=== PATIENT | female | born 1990 | race Caucasian/White ===

== ENCOUNTER 2024-05-21 11:06 | Emergency (ER) | payer SELFPAY ==
--- OUTSIDE RECORDS SUMMARY | 2024-05-21 11:11 | XMS REPORT | Continuity of Care Document ---
Author Name Unknown Address [address] [facility] [address] [place] [address] [facility] thconnect Address [address] [facility] [address] [place] [address] Care Team Providers Care Criminal Intelligence Analyst Name Role Phone Sabra Gisele CUMMINGS Primary Care Physician DEBORAH LOVE Attending Clinician Unavailable Bessie Leblanc Attending Clinician DR ROD Burgess Attending Clinician DEBORAH Honeycutt M.D. Attending Clinician Unavail GLENROY Trinidad P.A. Attending Clinician DR SAMI Cavazos Attending Clinician DR MARY Liu Attending Clinician VISHNU Vidal M.D. Attending Clinician DR VIRI Shannon BA Attending Clinician Unavailable DR DOMO PULLIAM Attending Clinician DR SUAD Winslow Attending Clinician Unavailable DR REINA AGEE Attending Clinician Unavailjian patel Physician, No Primary or Family Admitting Clinic DR ROD Grossman Admitting Clinician DR SAMI Beltran Admitting Clinician DR MARY Liu Admitting Clinician Unavailable DR VIRI MIRANDA Admitting Clinician Unavailable DR DOMO PULLIAM Admitting Clinician U dhiraj CANNON, DR BORJAS Admitting Clinician Unavailable CYNDIE, DR REINA Marx Admitting Clinician Unavailabl e Payers Payer Name Policy Type Policy Number Effective Date Expirati on Date Source PSYCHIATRIC MEDICAID STAR [id number] 2019 00:00:00 Problems Condition Name Condition Details Condition Category Status Onset Date Resolution Date Last Treatment Date Treating Clinician Comments Source History of Known health problems: none History of Known health problems: none Problem Resolve d [facility] Screening for cervical cancer Screening for cervical cancer Problem Active [facility] Need for HPV vaccinatio n Need for HPV vaccinatio n Problem Active [facility] Contracept ion management Contracept ion management Problem Active [facility] Acute cystitis with hematuria Acute cystitis with hematuria Problem Active [facility] Screen for STD (sexually transmitte d disease) Screen for STD (sexually transmitte d disease) Problem Active [facility] Influenza vaccinatio n declined Influenza vaccinatio n declined Problem Active [facility] Nexplanon insertion Nexplanon insertion Problem Active [facility] Encounter for counseling regarding contracept ion Encounter for counseling regarding contracept ion Problem Active [facility] Encounter for gynecologi callie examinatio n with Papanicola ou smear of cervix Encounter for gynecologi callie examinatio n with Papanicola ou smear of cervix Problem Active [facility] UTI (urinary tract infection) UTI (urinary tract infection) Problem Active [facility] Chlamydia Chlamydia Problem Active [facility] Dysuria Dysuria Problem Active [facility] BV (bacterial vaginosis) BV (bacterial vaginosis) Problem Active [facility] Increased urinary frequency Increased urinary frequency Problem Active [facility] Allergies, Adverse Reactions, Alerts Allergy Name Allergy Type Status Severity Reaction(s) Onset Date Inactive Date Treating Clinician Comments Source Sulfa Antibiot ics - CLASS Propensi ty to adverse reaction to drug Active 04-06 00:00: 00 Ramana Farnsworth Sulfa (Sulfona mide Antibiot ics) DA Active [facility] 01-27 00:00: 00 [facility] Sulfa (Sulfona mides) DA Active Unknown 09-29 00:00: 00 [facility] No Known Food Allergie s DA Active U 04-22 00:00: 00 [facility] No Known Other Allergie s DA Active U 04-22 00:00: 00 [facility] No Known Contrast Allergie s DA Active U 04-22 00:00: 00 [facility] No Known Drug Allergie s DA Active U 04-22 00:00: 00 [facility] sulfa Allergy to drug (finding ) Active [facility] Family History Family Member Diagnosis Comments Start Date Stop Date Sourc e Mother Family history of diabetes mellitus [facility] Unknown Family Member Family history of malignant neoplasm of female breast Maternal Relatives [facility] Social History Smoking Status Start Date Stop Date Source Occasional tobacco smoker (finding) [facility] Medications Ordered Medication Name Filled Medication Name Start Date Stop Date Current Medication? Ordering Clinician Indication Dosage Frequency Signature (SIG) Comments Components Source penicillin V potassium 500 mg tablet 01-27 00:00: 00 Yes 1mg Ramana Farnsworth TAKE 1 TABLET BY MOUTH EVERY 6 HOURS NEEDED FOR PAIN 04-08 00:00: 00 Yes Ramana Farnsworth AMOX/K CLAV [id number] [id number] 7-13 00:00: 00 Yes Ramana Farnsworth AMOX/K CLAV [id number] [id number] 4-21 00:00: 00 Yes Ramana Farnsworth TAKE 1 TABLET BY MOUTH EVERY DAY 01-15 00:00: 00 Yes Ramana Farnsworth CETIRIZINE 01-15 00:00: 00 Yes Ramana Farnsworth metroNIDAZO LE 500 MG Oral Tablet metroNIDAZO LE 500 MG Oral Tablet 15 00:00: 00 Yes DEBORAH Amezcua.Romaine TAKE ONE TABLET TWICE DAILY FOR 7 DAYS. DO NOT DRINK ALCOHOL [facility] Nitrofurant oin Monohyd Macro 100 MG Oral Capsule Nitrofurant oin Monohyd Macro 100 MG Oral Capsule 2019-09 00:00: 00 Yes DEBORAHTIFFANY MUELLERKATE M.D. 1 capsule twice a day for 7 days [facility] Vital Signs Vital Name Observation Time Observation Value Comments S ource Height 2021-02-06 17:22:00 165.1 CM Weight 2021-02-06 17:22:00 47.17 KG Height 2020-02-15 17:02:00 162.56 CM Weight 2020-02-15 17:02:00 52.16 KG Height 2019-11-27 19:04:00 162.56 CM Weight 2019-11-27 19:04:00 53.52 KG Height 2019-10-31 13:07:00 162.56 CM Weight 2019-10-31 13:07:00 52.16 KG BP Systolic 2024-03-08 15:51:00 108 mm[Hg] Ramana F Javad BP Diastolic 2024-03-08 15:51:00 77 mm[Hg] Ramana F Javad Weight Measured 2024-03-08 15:51:00 118.00 pounds Ramana F Javad Height Measured 2024-03-08 15:51:00 64.00 inches Ramana F Javad Body Temperature 2024-03-08 15:51:00 98.20 degrees Ramana F Javad Heart Rate 2024-03-08 15:51:00 80.00 /min Ramana F Javad Respiratory Rate 2024-03-08 15:51:00 18.00 /min Ramana F Javad Height Measured 2024-01-25 16:15:00 64.00 inches Ramana F Javad Body Temperature 2024-01-25 16:15:00 98.20 degrees Ramana F Javad Heart Rate 2024-01-25 16:15:00 83.00 /min Armana F Javad Respiratory Rate 2024-01-25 16:15:00 17.00 /min Ramana F Javad BP Systolic 2024-01-25 16:15:00 117 mm[Hg] Ramana F Javad BP Diastolic 2024-01-25 16:15:00 80 mm[Hg] Ramana F Javad Weight Measured 2024-01-25 16:15:00 117.00 pounds Ramana F Javad BP Systolic 2023-04-13 17:34:00 111 mm[Hg] Ramana F Javad BP Diastolic 2023-04-13 17:34:00 74 mm[Hg] Ramana F Javad Weight Measured 2023-04-13 17:34:00 116.00 pounds Ramana F Javad Height Measured 2023-04-13 17:34:00 64.00 inches Ramana F Javad Body Temperature 2023-04-13 17:34:00 98.20 degrees Ramana F Javad Heart Rate 2023-04-13 17:34:00 68.00 /min Ramana Farnsworth Respiratory Rate 2023-04-13 17:34:00 17.00 /min Ramana Farnsworth BP Systolic 2023-04-06 10:07:00 108 mm[Hg] Ramana Farnsworth BP Diastolic 2023-04-06 10:07:00 71 mm[Hg] Ramana Farnsworth Weight Measured 2023-04-06 10:07:00 114.40 pounds Ramana Farnsworth Height Measured 2023-04-06 10:07:00 64.00 inches Ramana Farnsworth Body Temperature 2023-04-06 10:07:00 97.70 degrees Ramana Farnsworth Heart Rate 2023-04-06 10:07:00 63.00 /min Ramana Farnsworth Respiratory Rate 2023-04-06 10:07:00 Ramana Farnsworth Systolic blood pressure 2020-12-04 08:53:00 108 mm[Hg] Location: [facility]; Position: Sitting [facility] Diastolic blood pressure 2020-12-04 08:53:00 72 mm[Hg] Location: [facility]; Position: Sitting [facility] Body height 2020-12-04 08:53:00 65 [in_us] [facility] Weight 2020-12-04 08:53:00 114 [lb_av] [facility] Body mass index (BMI) [Ratio] 2020-12-04 08:53:00 18.97 kg/m2 [facility] Body temperature 2020-12-04 08:53:00 97.8 [degF] [facility] Heart Rate 2020-12-04 08:53:00 81 /min [facility] Systolic blood pressure 2020-09-04 08:22:00 92 mm[Hg] Location: [facility]; Position: Sitting [facility] Diastolic blood pressure 2020-09-04 08:22:00 64 mm[Hg] Location: [facility]; Position: Sitting [facility] Body height 2020-09-04 08:22:00 65 [in_us] [facility] Weight 2020-09-04 08:22:00 117 [lb_av] [facility] Body mass index (BMI) [Ratio] 2020-09-04 08:22:00 19.47 kg/m2 [facility] Body temperature 2020-09-04 08:22:00 96.7 [degF] [facility] Heart Rate 2020-09-04 08:22:00 77 /min [facility] Systolic blood pressure 2020-08-07 08:54:00 98 mm[Hg] Location: [facility]; Position: Sitting [facility] Diastolic blood pressure 2020-08-07 08:54:00 62 mm[Hg] Location: [facility]; Position: Sitting [facility] Body height 2020-08-07 08:54:00 65 [in_us] [facility] Body mass index (BMI) [Ratio] 2020-08-07 08:54:00 19.64 kg/m2 [facility] Weight 2020-08-07 08:54:00 118 [lb_av] [facility] Body temperature 2020-08-07 08:54:00 98.5 [degF] [facility] Heart Rate 2020-08-07 08:54:00 71 /min [facility] Systolic blood pressure 2020-08-07 08:17:00 101 mm[Hg] Location: [facility]; Position: Sitting [facility] Diastolic blood pressure 2020-08-07 08:17:00 72 mm[Hg] Location: [facility]; Position: Sitting [facility] Body height 2020-08-07 08:17:00 65 [in_us] [facility] Body mass index (BMI) [Ratio] 2020-08-07 08:17:00 18.31 kg/m2 [facility] Weight 2020-08-07 08:17:00 110 [lb_av] [facility] Body temperature 2020-08-07 08:17:00 96.6 [degF] [facility] Heart Rate 2020-08-07 08:17:00 101 /min [facility] Systolic blood pressure 2020-07-18 09:37:00 99 mm[Hg] [facility] Diastolic blood pressure 2020-07-18 09:37:00 69 mm[Hg] [facility] Body height 2020-07-18 09:37:00 65 [in_us] [facility] Weight 2020-07-18 09:37:00 108.4 [lb_av] [facility] Body mass index (BMI) [Ratio] 2020-07-18 09:37:00 18.04 kg/m2 [facility] Body temperature 2020-07-18 09:37:00 97.6 [degF] [facility] Heart Rate 2020-07-18 09:37:00 91 /min [facility] Respiratory rate 2020-07-18 09:37:00 19 /min [facility] O2 SAT 2020-07-18 09:37:00 100 % [facility] Systolic blood pressure 2019-11-20 09:47:00 113 mm[Hg] Location: [facility]; Position: Sitting [facility] Diastolic blood pressure 2019-11-20 09:47:00 73 mm[Hg] Location: [facility]; Position: Sitting [facility] Body height 2019-11-20 09:47:00 65 [in_us] [facility] Weight 2019-11-20 09:47:00 119 [lb_av] [facility] Body mass index (BMI) [Ratio] 2019-11-20 09:47:00 19.8 kg/m2 [facility] Body temperature 2019-11-20 09:47:00 97.4 [degF] [facility] Heart Rate 2019-11-20 09:47:00 70 /min [facility] Respiratory rate 2019-11-20 09:47:00 19 /min [facility] O2 SAT 2019-11-20 09:47:00 100 % [facility] Systolic blood pressure 2019-11-13 10:29:00 105 mm[Hg] Location: [facility]; Position: Sitting [facility] Diastolic blood pressure 2019-11-13 10:29:00 70 mm[Hg] Location: [facility]; Position: Sitting [facility] Body height 2019-11-13 10:29:00 65 [in_us] [facility] Weight 2019-11-13 10:29:00 117.6 [lb_av] [facility] Body mass index (BMI) [Ratio] 2019-11-13 10:29:00 19.57 kg/m2 [facility] Body temperature 2019-11-13 10:29:00 97.5 [degF] [facility] Heart Rate 2019-11-13 10:29:00 69 /min [facility] Respiratory rate 2019-11-13 10:29:00 19 /min [facility] O2 SAT 2019-11-13 10:29:00 100 % [facility] Procedures Procedure Date / Time Performed Performing Clinicia n Source [QL] CULTURE, URINE, ROUTINE 2020-12-04 00:00:00 [facility] . [facility] - GC/Chlamydia 2020-10-08 00:00:00 [facility] . [facility] - Affirm VPIII (BV Panel) 2020-10-08 00:00:00 [facility] [QL] CBC (INCLUDES DIFF/PLT) 2020-09-04 00:00:00 [facility] [QL] CMP W/EGFR 2020-09-04 00:00:00 [facility] [QL] HEMOGLOBIN A1c 2020-09-04 00:00:00 [facility] [QL] LIPID PANEL 2020-09-04 00:00:00 [facility] [QL] T4, FREE 2020-09-04 00:00:00 [facility] [QL] TSH, 3RD GENERATION 2020-09-04 00:00:00 [facility] . [facility] - PAP 2020-09-04 00:00:00 [facility] [QL] CULTURE, URINE, ROUTINE 2020-07-18 00:00:00 [facility] [Q] CHLAMYDIA/N. GONORRHOEAE RNA, TMA 2020-07-18 00:00:00 [facility] [Q] HIV AB, HIV 1/2, EIA, WITH REFLEXES 2020-07-18 00:00:00 [facility] [Q] HEPATITIS B SURFACE ANTIGEN W/REFL CONFIRM 2020-07-18 00:00:00 [facility] [Q] RPR (MONITOR) W/REFL TITER 2020-07-18 00:00:00 [facility] [QL] HEPATITIS C ANTIBODY 2020-07-18 00:00:00 [facility] [QH] HEPATITIS B SURFACE ANTIGEN W/REFL CONFIRM 2019-11-13 00:00:00 [facility] [QH] HIV AB, HIV 1/2, EIA, WITH REFLEXES 2019-11-13 00:00:00 [facility] [QLH] HEPATITIS C ANTIBODY 2019-11-13 00:00:00 [facility] [QLH] RPR 2019-11-13 00:00:00 [facility] - PAP 2019-11-13 00:00:00 [facility] - PAP w/reflex HPV if ASC-US or above 2019-11-13 00:00:00 [facility] . [facility] - HPV 16/18/45 Genotyping 2019-11-13 00:00:00 [facility] . [facility] - Affirm VPIII (BV Panel) 2019-11-13 00:00:00 [facility] . [facility] - GC/Chlamydia 2019-11-13 00:00:00 [facility] History of Dilation and curettage [facility] Encounters Start Date/Time End Date/Time Encounter Type Admission Type Attending Clinicians Care Facility Care Department Encounter ID Source 2021-02-01 03:33:06 Outpatient DEBORAH LOVE [facility] [id number] [facility] 2024-03-08 15:43:58 2024-03-08 15:43:58 Outpatient SFA [id number] [id number] Ramana Farnsworth 2024-03-08 00:00:00 2024-03-08 00:00:00 Outpatient Visit SFA [id number] Ramana Farnsworth 2024-02-10 15:34:48 2024-02-10 15:34:48 Outpatient SFA [id number] [id number] Ramana Farnsworth 2024-01-25 15:53:17 2024-01-25 15:53:17 Outpatient SFA [id number] [id number] Ramana Farnsworth 2024-01-25 00:00:00 2024-01-25 00:00:00 Outpatient Visit SFA [id number] Ramana Farnsworth 2023-04-13 17:18:39 2023-04-13 17:18:39 Outpatient SFA [id number] [id number] Ramana Farnsworth 2023-04-06 10:02:12 2023-04-06 10:02:12 Outpatient SFA [id number] [id number] Ramana Farnsworth 2022-04-13 00:00:00 2022-04-13 00:00:00 Outpatient [facility] [id number] [id number] [facility] 2022-01-27 13:17:00 2022-01-27 15:28:00 Emergency EM Deana, Bessie HCAKW [facility] [id number] [facility] 2022-01-27 13:17:00 2022-01-27 15:28:00 Emergency EM Deana, Bessie HCAKW [facility] [id number] [facility] 2021-02-06 17:17:00 2021-02-06 18:03:00 Emergency E ROD RODRIGUEZ [facility] [id number] [facility] 2020-12-04 08:45:00 2020-12-04 08:45:00 Appointmen t; DEBORAH LOVE M.D. DURRANI, SADIA, M.D. [facility] [place] [id number] [facility] 2020-10-08 11:45:00 2020-10-08 11:45:00 Appointmen t; DEBORAH LOVE M.D. DURRANI, SADIA, M.D. [facility] [place] [id number] [facility] 2020-09-04 08:30:00 2020-09-04 08:30:00 Appointmen t; DEBORAH LOVE M.D. DURRANI, SADIA, M.D. [facility] [place] [id number] [facility] 2020-08-07 08:30:00 2020-08-07 08:30:00 Appointmen t; DEBORAH LOVE M.D. DURRANI, SADIA, M.D. [facility] [id number] [facility] 2020-07-18 09:45:00 2020-07-18 09:45:00 Appointmen t; GLENROY HOLGUIN, PGLENROY RUIZ, P.Honorio [facility] [id number] [facility] 2020-02-15 16:34:00 2020-02-15 19:30:00 Emergency E SAMI HANLEY [facility] [id number] [facility] 2019-11-27 19:04:00 2019-11-27 21:41:00 Emergency E MARY AGEE [facility] [id number] [facility] 2019-11-20 09:30:00 2019-11-20 09:30:00 Appointmen t; VISHNU AGGARWAL M.D. DURGAM, ABHILASH, M.D. [facility] [id number] [facility] 2019-11-13 10:00:00 2019-11-13 10:00:00 Appointmen t; VISHNU AGGARWAL M.D. DURGAM, ABHILASH, M.D. [facility] [id number] [facility] 2019-10-31 13:07:00 2019-10-31 14:33:00 Emergency E SAMI HANLEY [facility] [id number] [facility] 2018-12-12 12:27:00 2018-12-12 14:15:00 Emergency E VIRI MIRANDA [facility] [id number] [facility] 2018-05-16 20:34:00 2018-05-16 23:05:00 Emergency E DOMO PULLIAM [facility] [id number] [facility] 2018-05-11 19:04:00 2018-05-11 22:11:00 Emergency E SUAD CANNON [facility] [id number] [facility] 2017-11-11 11:49:00 2017-11-11 14:01:00 Emergency E REINA AGEE [facility] [id number] [facility] Results Test Description Test Time Test Comments Results Result Co mments Source CULTURE, URINE 2024-01-27 11:14:04 SPECIMEN NUMBER: [id number] CULTURE, URINE SPECIMEN NUMBER: [id number] SPECIMEN COMMENT: URINE SOURCE: URINE REPORT STATUS: FINAL ISOLATE NUMBER 1: ORGANISM: 01/27/2024 <10,000 CFU/ML STREPTOCOCCUS AGALACTIAE (GROUP B) ADDITIONAL OBSERVATIONS: PENICILLIN AND AMPICILLIN ARE DRUGS OF CHOICE FOR TREATMENT OF B-HEMOLYTIC STREPTOCOCCAL INFECTIONS. SUSCEPTIBILITY TESTING OF PENICILLIN AND OTHER B-LACTAMS APPROVED BY THE US FOOD AND DRUG ADMINISTRATION FOR TREATMENT OF B-HEMOLYTIC STREPTOCOCCAL INFECTIONS NEED NOT BE PERFORMED ROUTINELY. ADDITIONAL OBSERVATIONS: 01/27/2024 <10,000 CFU/ML UROGENITAL FRANK PRESENT NO COMMON PATHOGENS Ramana Smith AustinCT/NG, NAAT, [id number] 16:53:42* Test Item Value Reference Range Interpretation Comme nts CHLAMYDIA, NAAT, URINE (test code = 00026) NEGATIVE NEGATIVE Testing is perfo rmed with qianchengwuyouAS 6800/8800 systems usingreal-time polymerase chain reaction (PCR) method. A negative result does not exclude low level infection, specimensampling error, or collection error. GONORRHEA, NAAT, URINE (test code = 04226) NEGATIVE NEGATIVE Testing is perfo rmed with Joe ASCENCION 6800/8800 systems usingreal-time polymerase chain reaction (PCR) method. A negative result does not exclude low level infection, specimensampling error, or collection error. UNLESS OTHERWISE INDICATED, ALL TESTING PERFORMED AT [facility] [address] [place] [address] CRM SPECIALIST: ANGELO KELSEY M.D. CLIA NUMBER [id number] [place]. [id number] CT/NG, NAAT, [id number] 00:00:00* Test Item Value Reference Range Interpretation Comme nts CHLAMYDIA, NAAT, URINE (test code = 70312) NEGATIVE GONORRHEA, NAAT, URINE (test code = 46641) NEGATIVE Ramana F Javad[] CULTURE, URINE, [id number] 10:26:00* Test Item Value Reference Range Interpretation Comme nts CULTURE (test code = CULTURE) See Comment A CULTURE, URINE, ROUTINE Micro Number: [id number] Test Status: Final Specimen Source: URINE, CLEAN CATCH Specimen Quality: Adequate Result: Greater than 100,000 CFU/mL of Escherichia coli E.coli INT SONJA AMOX/CLAVULANATE I 16 AMPICILLIN R >=32 AMP/SULBACTAM I 16 CEFAZOLIN NR <=4 2 CEFEPIME S <=1 CEFTRIAXONE S <=1 CIPROFLOXACIN S <=0.25 GENTAMICIN R >=16 IMIPENEM S <=0.25 LEVOFLOXACIN S <=0.12 NITROFURANTOIN S <=16 PIP/TAZOBACTAM S <=4 TOBRAMYCIN I 8 TRIMETHOPRIM/SULFA R >=320S=Susceptible I=Intermediate R=Resistant * = Not TestedNR = Not Reported NN = See Therapy CommentsTHERAPY COMMENTS Note 1: For infections other than uncomplicated UTI caused by E. coli, K. pneumoniae or P. mirabilis: Cefazolin is resistant if SONJA > or = 8 mcg/mL. (Distinguishing susceptible versus intermediate for isolates with SONJA < or = 4 mcg/mL requires additional testing.) Note 2: For uncomplicated UTI caused by E. coli, K. pneumoniae or P. mirabilis: Cefazolin is susceptible if SONJA <32 mcg/mL and predicts susceptible to the oral agents cefaclor, cefdinir, cefpodoxime, cefprozil, cefuroxime, cephalexin and loracarbef. [facility]. [facility] - Affirm VPIII (BV Panel)2020-10-09 15:07:00* Test Item Value Reference Range Interpretation Comme nts Case (test code = Case) Click ImageLink button for report. A [facility][QL] LIPID [id number] 09:25:00* Test Item Value Reference Range Interpretation Comme nts CHOLESTEROL, TOTAL; Normal (test code = 3-3) 130 mg/dl <200 N HDL CHOLESTEROL; Normal (test code = 5-9) 51 mg/dl > OR = 50 N TRIGLYCERIDES; Normal (test code = 2571-8) 71 mg/dl <150 N LDL-CHOLESTEROL; Normal (test code = 63352-3) 64 {MG/DL CALLIE} N Reference range: <100 Desirable range <100 mg/dL for primary prevention; <70 mg/dL for patients with CHD or diabetic patients with > or = 2 CHD risk factors. LDL-C is now calculated using the Malik-Ольга calculation, which is a validated novel method providing better accuracy than the Friedewald equation in the estimation of LDL-C. Malik SS et al. ALEXANDRA. 2013;310(19): 2983-5925 (http://education.Capstory.com/f aq/IBM752) CHOL/HDLC RATIO (test code = CHOL/HDLC RATIO) 2.5 {CALC} <5.0 N NON HDL CHOLESTEROL (test code = NON HDL CHOLESTEROL) 79 {MG/DL CALILE} <130 N For patients wit h diabetes plus 1 major ASCVD risk factor, treating to a non-HDL-C goal of <100 mg/dL (LDL-C of <70 mg/dL) is considered a therapeutic option. [facility][QL] CMP [id number] 09:25:00* Test Item Value Reference Range Interpretation Comme nts GLUCOSE; Normal (test code = 1547-9) 86 mg/dl 65-99 N Fasting ref erence interval UREA NITROGEN (BUN) (test code = UREA NITROGEN (BUN)) 7 mg/dl 7-25 N CREATININE (test code = CREATININE) 0.78 mg/dl 0.50-1.10 N eGFR NON-AFR. [place] (test code = eGFR NON-AFR. [place]) 102 {ML/MIN/1.7} > OR = 60 N eGFR (test code = eGFR ) 118 {ML/MIN/1.7} > OR = 60 N BUN/CREATININE RATIO (test code = BUN/CREATININE RATIO) NOT APPLICABLE 6-22 SODIUM (test code = SODIUM) 139 mmol/L 135-146 N POTASSIUM (test code = POTASSIUM) 4.0 mmol/L 3.5-5.3 N CHLORIDE (test code = CHLORIDE) 103 mmol/L 98-110 N CARBON DIOXIDE (test code = CARBON DIOXIDE) 30 mmol/L 20-32 N CALCIUM (test code = CALCIUM) 9.3 mg/dl 8.6-10.2 N PROTEIN, TOTAL (test code = PROTEIN, TOTAL) 6.6 g/dl 6.1-8.1 N ALBUMIN (test code = ALBUMIN) 4.2 g/dl 3.6-5.1 N GLOBULIN (test code = GLOBULIN) 2.4 {G/DL CALC} 1.9-3.7 N ALBUMIN/GLOBULIN RATIO (test code = ALBUMIN/GLOBULIN RATIO) 1.8 {CALC} 1.0-2.5 N BILIRUBIN, TOTAL; Normal (test code = 08445-5) 0.5 mg/dl 0.2-1.2 N ALKALINE PHOSPHATASE (test code = ALKALINE PHOSPHATASE) 57 u/l 31-125 N AST; Normal (test code = 1916-6) 11 u/l 10-30 N ALT; Normal (test code = 1742-6) 9 u/l 6-29 N [facility][QL] CBC (INCLUDES DIFF/PLT)2020-09-04 09:25:00* Test Item Value Reference Range Interpretation Comme nts WHITE BLOOD CELL COUNT (test code = WHITE BLOOD CELL COUNT) 9.2 {Thousand/u} 3.8-10.8 N RED BLOOD CELL COUNT (test code = RED BLOOD CELL COUNT) 4.39 {Million/uL} 3.80-5.10 N HEMOGLOBIN; Normal (test code = 21350-7) 12.8 g/dl 11.7-15.5 N HEMATOCRIT; Normal (test code = 4544-3) 37.9 % 35.0-45.0 N MCV; Normal (test code = 787-2) 86.3 fL 80.0-100.0 N MCHC; Normal (test code = 64948-0) 33.8 g/dl 32.0-36.0 N RDW; Normal (test code = 788-0) 11.7 % 11.0-15.0 N PLATELET COUNT; Normal (test code = 777-3) 221 {Thousand/u} 140-400 N MPV; Normal (test code = 90891-5) 11.0 fL 7.5-12.5 N ABSOLUTE NEUTROPHILS (test code = ABSOLUTE NEUTROPHILS) 5980 {cells/uL} 0464-2085 N ABSOLUTE LYMPHOCYTES (test code = ABSOLUTE LYMPHOCYTES) 2309 {cells/uL} 850-3900 N ABSOLUTE MONOCYTES (test code = ABSOLUTE MONOCYTES) 552 {cells/uL} 200-950 N ABSOLUTE EOSINOPHILS (test code = ABSOLUTE EOSINOPHILS) 322 {cells/uL} 15-500 N ABSOLUTE BASOPHILS (test code = ABSOLUTE BASOPHILS) 37 {cells/uL} 0-200 N NEUTROPHILS (test code = NEUTROPHILS) 65 % N LYMPHOCYTES (test code = LYMPHOCYTES) 25.1 % N MONOCYTES; Normal (test code = 72250-7) 6.0 % N EOSINOPHILS; Normal (test code = 65892-8) 3.5 % N BASOPHILS; Normal (test code = 36639-0) 0.4 % N [facility][QL] T4, [id number] 09:25:00* Test Item Value Reference Range Interpretation Comme nts T4, FREE (test code = T4, FREE) 1.0 ng/dl 0.8-1.8 N [facility][QL] TSH, 3RD [id number] 09:25:00* Test Item Value Reference Range Interpretation Comme nts TSH; Normal (test code = 27928-8) 2.15 {MIU/L} N Reference Range > or = 20 Years 0.40-4.50 Ranges First trimester 0.26-2.66 Second trimester 0.55-2.73 Third trimester 0.43-2.91 [facility][QL] HEMOGLOBIN [id number] 09:25:00* Test Item Value Reference Range Interpretation Comme nts HEMOGLOBIN A1c; Normal (test code = 4548-4) 4.8 {% of total} <5.7 N For the purpose of screening for the presence ofdiabetes: <5.7% Consistent with the absence of diabetes5.7-6.4% Consistent with increased risk for diabetes (prediabetes)> or =6.5% Consistent with diabetes This assay result is consistent with a decreased riskof diabetes. Currently, no consensus exists regarding use ofhemoglobin A1c for diagnosis of diabetes in children. According to [place] [employer] (ADA)guidelines, hemoglobin A1c <7.0% represents optimalcontrol in non- diabetic patients. Differentmetrics may apply to specific patient populations. Standards of Medical Care in Diabetes(ADA). [facility]. [facility] - [id number] 00:00:00* Test Item Value Reference Range Interpretation Comme nts Case (test code = Case) Click ImageLink button for report. A [facility][O] Urine Test (in office)2020-08-07 08:21:00* Test Item Value Reference Range Interpretation Comme [facility] Test, Urine; Eladia l (test code = 2106-3) neg N [facility][O] Urine Dipstick (In Office)2020-07-18 11:17:00* Test Item Value Reference Range Interpretation Comme nts Glucose (test code = Glucose) neg N LEUKOCYTES (test code = LEUKOCYTES) trace A NITRITE; Normal (test code = 95360-1) neg N UROBILINOGEN; Normal (test c ode = 61498-1) 0.2 N PROTEIN; Normal (test code = 95894-8) 30 N pH (test code = pH) 6.0 N URINE BLOOD; Abnormal (test code = 63047-0) large A SPECIFIC GRAVITY; Normal (te st code = 2965-2) 1.020 N KETONES; Normal (test code = 87200-5) neg N BILIRUBIN; Abnormal (test co de = 19278-5) small A [facility][Q] HIV-1/2 Antigen and Antibodies, Fourth Generation, with [id number] 10:30:00* Test Item Value Reference Range Interpretation Comme nts HIV AG/AB, 4TH GEN; Normal (test code = 99387-1) NON-REACTIVE NON-REACTIVE N HIV-1 antigen an d HIV-1/HIV-2 antibodies were notdetected. There is no laboratory evidence of HIVinfection. PLEASE NOTE: This information has been disclosed toyou from records whose confidentiality may beprotected by state law. If your state requires suchprotection, then the state law prohibits you frommaking any further disclosure of the informationwithout the specific written consent of the personto whom it pertains, or as otherwise permitted by law.A general authorization for the release of medical orother information is NOT sufficient for this purpose. For additional information please refer [email or web address]/faq/GDZ498(Thi s link is being provided for informational/educational purposes only.) The performance of this assay has not been clinicallyvalidated in patients less than 2 years old. [facility][Q] HEPATITIS B SURFACE ANTIGEN W/REFL [id number] 10:30:00* Test Item Value Reference Range Interpretation Comme nts HEPATITIS B SURFACE ANTIGEN; Normal (test code = 5195-3) NON-REACTIVE NON-REACTIVE N [facility][QL] HEPATITIS C [id number] 10:30:00* Test Item Value Reference Range Interpretation Comme nts HEPATITIS C ANTIBODY; Normal (test code = 63095-6) NON-REACTIVE NON-REACTIVE N SIGNAL TO CUT-OFF (test code = SIGNAL TO CUT-OFF) 0.02 <1.00 N HCV antibody was non-reactive. There is no laboratory evidence of HCV infection. In most cases, no further action is required. However,if recent HCV exposure is suspected, a test for HCV RNA(test code 87509) is suggested. For additional information please refer tohttp://educationTranslimit/fa q/XJE53b4(This link is being provided for informational/educati onal purposes only.) [facility][Q] CHLAMYDIA/N. GONORRHOEAE RNA, [id number] 10:30:00* Test Item Value Reference Range Interpretation Comme nts CHLAMYDIA TRACHOMATIS RNA, TMA, UROGENITAL; Normal (test code = 11929-9) NOT DETECTED NOT DETECTED N NEISSERIA GONORRHOEAE RNA, TMA, UROGENITAL; Normal (test code = 84912-7) NOT DETECTED NOT DETECTED N See Comment (test code = See Comment) See Comment The analytic al performance characteristics of thisassay, when used to test [facility](TM) specimens have beendetermined by [facility]. The modifications havenot been cleared or approved by the FDA. This assay hasbeen validated pursuant to the CLIA regulations and isused for clinical purposes. For additional information, please refer tohttps://education.[employer]/faq /MMK724(This link is being provided for information/educationa l purposes only.) [facility][QL] [id number] 10:30:00* Test Item Value Reference Range Interpretation Comme nts RPR (MONITOR) W/REFL TITER (REFL) (test code = RPR (MONITOR) W/REFL TITER (REFL)) NON-REACTIVE NON-REACTIVE N [facility][QL] CULTURE, URINE, [id number] 10:30:00* Test Item Value Reference Range Interpretation Comme nts CULTURE (test code = CULTURE) See Comment A CULTURE, URINE, ROUTINE Micro Number: [id number] Test Status: Final Specimen Source: URINE Specimen Quality: Adequate Result: Greater than 100,000 CFU/mL of Escherichia coli E.coli INT SONJA AMOX/CLAVULANATE S <=2 AMPICILLIN S <=2 AMP/SULBACTAM S <=2 CEFAZOLIN NR <=4 2 CEFEPIME S <=1 CEFTRIAXONE S <=1 CIPROFLOXACIN R >=4 GENTAMICIN S <=1 IMIPENEM S <=0.25 LEVOFLOXACIN R >=8 NITROFURANTOIN S <=16 PIP/TAZOBACTAM S <=4 TOBRAMYCIN S <=1 TRIMETHOPRIM/SULFA S <=20S=Susceptible I=Intermediate R=Resistant * = Not TestedNR = Not Reported NN = See Therapy CommentsTHERAPY COMMENTS Note 1: For infections other than uncomplicated UTI caused by E. coli, K. pneumoniae or P. mirabilis: Cefazolin is resistant if SONJA > or = 8 mcg/mL. (Distinguishing susceptible versus intermediate for isolates with SONJA < or = 4 mcg/mL requires additional testing.) Note 2: For uncomplicated UTI caused by E. coli, K. pneumoniae or P. mirabilis: Cefazolin is susceptible if SONJA <32 mcg/mL and predicts susceptible to the oral agents cefaclor, cefdinir, cefpodoxime, cefprozil, cefuroxime, cephalexin and loracarbef. [facility]UR[facility] [id number] 09:44:00* Test Item Value Reference Range Interpretation Comme nts Culture Observations (test code = COB1) THREE OR MORE SPECIES OF BACTERIA ISOLATED. PROBABLE CONTAMINATION. Culture Observations (test code = COB17) IDENTIFICATION AND SUSCEPTIBILITY NOT INDICATED. RECOLLECTION RECOMMENDED COMPREHENSIVE METABOLIC [id number] 19:49:00* Test Item Value Reference Range Interpretation Comme nts GLUCOSE (test code = 06D) 94 mg/dL 75-100 SODIUM (test code = 01A) 140 mmol/L 136-145 POTASSIUM (test code = 01B) 3.4 mmol/L 3.6-5.1 L CHLORIDE (test code = 04A) 107 mmol/L 98-107 CO2 (test code = 02A) 27 mmol/L 22-32 ANION GAP (test code = ANG) 9.4 mmol/L BUN (test code = 05D) 7 mg/dL 7-18 CREATININE (test code = 03E) 0.7 mg/dL 0.4-1.1 EGFR (test code = EGFR) eGFR BY CKD-EPI CALCULATION IS NOT RECOMMENDED FOR PATIENTS UNDER 18 YEARS OF AGE. BUN/CREA (test code = BCR) 10 12-20 L CALCIUM (test code = 09D) 8.5 mg/dL 8.3-9.5 BILI TOTAL (test code = 11A) 0.4 mg/dL 0.2-1.0 PROTEIN (test code = 07D) 6.8 g/dL 6.4-8.2 ALBUMIN (test code = 08D) 3.6 g/dL 3.5-4.8 GLOBULIN (test code = GLB) 3.2 g/dL 1.5-3.8 ALB/GLOB (test code = AGRR) 1.1 1.0-2.6 ALK PHOS (test code = 35A) 64 IU/L 42-121 AST (test code = 30A) 14 IU/L <=42 ALT (test code = 31A) 16 IU/L <=78 AMYLASE AND [id number] 18:41:00* Test Item Value Reference Range Interpretation Comme nts AMYLASE (test code = 10A) 38 U/L 28-100 LIPASE (test code = 60A) 46 IU/L 73-393 L URINALYSIS WITH [id number] 18:06:00* Test Item Value Reference Range Interpretation Comme nts COLOR (test code = COLU) YELLOW YELLOW CLARITY (test code = CLA) CLOUDY CLEAR A GLUCOSE UR (test code = UA GLUCOSE) NEGATIVE NEGATIVE BILI UR (test code = BILE) NEGATIVE NEGATIVE KETONES UR (test code = JESSICA) NEGATIVE NEGATIVE SP GRAVITY (test code = SPGR) 1.012 1.005-1.030 PH UR (test code = PH) 6.0 4.5-8.0 PROTEIN UR (test code = PU) NEGATIVE NEGATIVE UROBIL UR (test code = UROQ) 0.2 EU/dL 0.2-1.0 NITRITE UR (test code = NITRITE) NEGATIVE NEGATIVE BLOOD UR (test code = UA BLOOD) 3+ NEGATIVE A LEUK ES UR (test code = LEUK) 3+ NEGATIVE A WBC UR (test code = UWBC) 15 /HPF 0-5 H RBC UR (test code = URBC) 4 /HPF 0-2 H EPITH UR (test code = UEPC) MODERATE /LPF FEW A BACTERIA UR (test code = UBACT) FEW /HPF NONE A CAST UR (test code = CAST) /LPF NONE CRYSTAL UR (test code = CRYU) / LPF NONE MUCUS UR (test code = MUC) / HPF NONE AMORPH UR (test code = COMFORT) / HPF NONE TRICH UR (test code = UTRICH) /HPF NONE YEAST UR (test code = UY) /HPF NONE SPERM UR (test code = USPERM) /HPF NONE [id number] 17:45:00* Test Item Value Reference Range Interpretation Comme nts MAGNESIUM (test code = 48A) 2.0 mg/dL 1.8-2.4 PRO TIME AND [id number] 17:42:00* Test Item Value Reference Range Interpretation Comme nts PT (test code = TT) 12.0 s 9.8-13.6 INR (test code = INR) 1.0 INRH (test code = INRH) SUGGESTED THERAPEUTIC RANGE FOR INR: 2.5 - 3.5 For Patients with Prosthetic Valves or Patients with recurrent Thromboembolic Events 2.0 - 3.0 For Most Other Applications PTT (test code = PTT) 31.4 s 20.2-38.0 PTTH (test code = PTTH) To monitor the effectiveness of heparin, we offer the Anti-Xa (Heparin Assay). It can be used for either unfractionated or LMW Heparin. Order Code is ANTI-XA URINE [id number] 17:37:00* Test Item Value Reference Range Interpretation Comme nts PREG UR (test code = PGU) NEGATIVE NEGATIVE CBC (INCLUDES AUTOMATED DIFFERENTIAL)2020-02-15 17:34:00* Test Item Value Reference Range Interpretation Comme nts WBC (test code = WBC) 8.4 10\S\3/uL 4.5-11.0 RBC (test code = RBC) 4.00 10\S\6/uL 4.30-5.70 L HGB (test code = HBG) 11.9 g/dL 12.0-15.5 L HCT (test code = HCT) 34.9 % 35.0-44.0 L MCV (test code = MCV) 87.3 fL 81.0-99.0 MCH (test code = MCH) 29.8 pg 27.0-31.0 MCHC (test code = MCHC) 34.1 g/dL 32.0-36.0 RDW (test code = RDW) 11.7 % 11.5-14.5 PLT (test code = PLT) 158 10\S\3/uL 130-400 MPV (test code = MPV) 10.9 fL 9.4-12.4 NEUTROP # (test code = NE#) 6.0 10\S\3/uL 1.6-8.0 LYMPH # (test code = LY#) 1.8 10\S\3/uL 1.1-3.5 MONOCYTE # (test code = MO#) 0.5 10\S\3/uL 0.0-1.1 EOSINOPH # (test code = EO#) 0.1 10\S\3/uL 0.0-0.7 BASOPHIL # (test code = BA#) 0.0 10\S\3/uL 0.0-0.3 IG # (test code = IG#) 0.01 10\S\3/uL 0.00-0.06 NRBC # (test code = NRBC#) 0.00 10\S\3/uL 0.00-0.01 NEUTROPH % (test code = NE%) 71.1 % 35.0-73.0 LYMPH % (test code = LY%) 21.6 % 20.0-55.0 MONO % (test code = MO%) 5.4 % 2.5-10.0 EOSINOPH % (test code = EO%) 1.6 % 0.0-5.0 BASOPHIL % (test code = BA%) 0.2 % 0.0-2.0 IG % (test code = IG%) 0.1 % 0.0-0.8 NRBC% (test code = NRBC%) 0.0 % 0.0-0.2 MANDIFF (test code = MDIFF) NO NO RBC MORPH (test code = RBCMOR) NORMAL [Q] HIV-1/2 Antigen and Antibodies, Fourth Generation, with [id number] 11:15:00* Test Item Value Reference Range Interpretation Comme nts HIV AG/AB, 4TH GEN; Normal (test code = 51858-6) NON-REACTIVE NON-REACTIVE N HIV-1 antigen an d HIV-1/HIV-2 antibodies were notdetected. There is no laboratory evidence of HIVinfection. PLEASE NOTE: This information has been disclosed toyou from records whose confidentiality may beprotected by state law. If your state requires suchprotection, then the state law prohibits you frommaking any further disclosure of the informationwithout the specific written consent of the personto whom it pertains, or as otherwise permitted by law.A general authorization for the release of medical orother information is NOT sufficient for this purpose. For additional information please refer tohttp://education.[employer]/faq/QMW654(Thi s link is being provided for informational/educational purposes only.) The performance of this assay has not been clinicallyvalidated in patients less than 2 years old. [facility][Q] HEPATITIS B SURFACE ANTIGEN W/REFL [id number] 11:15:00 * Test Item Value Reference Range Interpretation Comme nts HEPATITIS B SURFACE ANTIGEN; Normal (test code = 5195-3) NON-REACTIVE NON-REACTIVE N [facility]] HEPATITIS C [id number] 11:15:00* Test Item Value Reference Range Interpretation Comme nts HEPATITIS C ANTIBODY; Normal (test code = 56684-4) NON-REACTIVE NON-REACTIVE N SIGNAL TO CUT-OFF (test code = SIGNAL TO CUT-OFF) 0.01 <1.00 N HCV antibody was non-reactive. There is no laboratory evidence of HCV infection. In most cases, no further action is required. However,if recent HCV exposure is suspected, a test for HCV RNA(test code 59528) is suggested. For additional information please refer tohttp://education.F[employer]phere/fa q/TTP91d9(This link is being provided for informational/educati onal purposes only.) [facility][QLH] [id number] 11:15:00* Test Item Value Reference Range Interpretation Comme nts RPR (MONITOR) W/REFL TITER (REFL) (test code = RPR (MONITOR) W/REFL TITER (REFL)) NON-REACTIVE NON-REACTIVE N [facility]. [facility] - [id number] 00:00:00* Test Item Value Reference Range Interpretation Comme nts Case (test code = Case) Click ImageLink button for report. A Specimen 1 (test code = Specimen 1) Click ImageLink button for report. A [facility]IN[facility] WITH MICRO *WW*2018-12-12 13:38:00* Test Item Value Reference Range Interpretation Comme nts COLOR (test code = COLU) YELLOW YELLOW CLARITY (test code = CLA) SLT HAZY CLEAR A GLUCOSE UR (test code = UA GLUCOSE) NEGATIVE NEGATIVE BILI UR (test code = BILE) NEGATIVE NEGATIVE KETONES UR (test code = JESSICA) NEGATIVE NEGATIVE SP GRAVITY (test code = SPGR) 1.010 1.005-1.030 PH UR (test code = PH) 8.0 4.5-8.0 PROTEIN UR (test code = PU) TRACE NEGATIVE A UROBIL UR (test code = UROQ) 1.0 EU/dL 0.2-1.0 NITRITE UR (test code = NITRITE) NEGATIVE NEGATIVE BLOOD UR (test code = UA BLOOD) 3+ NEGATIVE A LEUK ES UR (test code = LEUK) TRACE NEGATIVE A WBC UR (test code = UWBC) 6 /HPF 0-5 H RBC UR (test code = URBC) 15 /HPF 0-2 H EPITH UR (test code = UEPC) FEW /LPF FEW BACTERIA UR (test code = UBACT) MANY /HPF NONE A CAST UR (test code = CAST) /LPF NONE CRYSTAL UR (test code = CRYU) / LPF NONE MUCUS UR (test code = MUC) / HPF NONE AMORPH UR (test code = COMFORT) / HPF NONE TRICH UR (test code = UTRICH) /HPF NONE YEAST UR (test code = UY) /HPF NONE SPERM UR (test code = USPERM) /HPF NONE URINE MONOCLONAL 2018-12-12 13:30:00* Test Item Value Reference Range Interpretation Comme nts PREG UR (test code = PGU) NEGATIVE NEGATIVE CT HEAD W/O CONTRAST 2018-05-16 23:03:50Addendum:Additional reformatted images were obtained in the sagittal and coronal planes.There is a 2.0 x 1.8 cm cystic lesion appearing extra-axial and superior to thecerebellum in the midline likelyrepresenting arachnoid cyst. MRI recommendedfor further evaluation. URINE MONOCLONAL 2018-05-16 22:14:00* Test Item Value Reference Range Interpretation Comme nts PREG UR (test code = PGU) NEGATIVE NEGATIVE DIRECT CHLAMYDIA [id number] 07:27:00* Test Item Value Reference Range Interpretation Comme nts CHLAMYDIA TRACHOMATIS (test code = 35230927) NOT DETECTED NOT DETECTED NEISSERIA GONORRHOEAE (test code = 06623137) NOT DETECTED NOT DETECTED Endnote (test code = 46406703) This test was performed using the APTIMA COMBO2 Assay([employer]The analytical performance characteristics of thisassay, when used to test SurePath specimens havebeen determined by [facility].TEST PERFORMED AT:[facility] [id number] [place] [id number] ODOM M.D. U/S [id number] 21:57:11EXAM: Pelvic ultrasoundLocation: R16 COMPARISON: NoneINDICATION: Vaginal bleeding.DISCUSSION: Avila scale and color Doppler transabdominal images of the pelviswere obtained. The uterus measures 6.5 x 3.1 x 4.1 cm. No uterine mass isidentified. The endometrial stripe measures 0.8 cm.The ovaries are normal in size and echogenicity. The right ovary measures 3.5 x2.4 x 2.4 cm and the left ovary measures 4.2 x 1.9 x 1.5 cm. A 1.5 cm dominantright ovarian follicle is seen. Several small left ovarian follicles areidentified. Ovarian flow is appropriate. No free fluid is seen.IMPRESSION: Unremarkable uterus and ovaries. No free fluid is seen.URINALYSIS WITH MICRO 2018-05-11 20:06:00* Test Item Value Reference Range Interpretation Comme nts COLOR (test code = COLU) YELLOW YELLOW CLARITY (test code = CLA) CLOUDY CLEAR A GLUCOSE UR (test code = UA GLUCOSE) NEGATIVE NEGATIVE BILI UR (test code = BILE) NEGATIVE NEGATIVE KETONES UR (test code = JESSICA) NEGATIVE NEGATIVE SP GRAVITY (test code = SPGR) 1.012 1.005-1.030 PH UR (test code = PH) 7.0 4.5-8.0 PROTEIN UR (test code = PU) NEGATIVE NEGATIVE UROBIL UR (test code = UROQ) 0.2 EU/dL 0.2-1.0 NITRITE UR (test code = NITRITE) NEGATIVE NEGATIVE BLOOD UR (test code = UA BLOOD) 3+ NEGATIVE A LEUK ES UR (test code = LEUK) NEGATIVE NEGATIVE WBC UR (test code = UWBC) 3 /HPF 0-5 RBC UR (test code = URBC) >100 /HPF 0-2 H EPITH UR (test code = UEPC) FEW /LPF FEW BACTERIA UR (test code = UBACT) NONE /HPF NONE CAST UR (test code = CAST) /LPF NONE CRYSTAL UR (test code = CRYU) / LPF NONE MUCUS UR (test code = MUC) / HPF NONE AMORPH UR (test code = COMFORT) / HPF NONE TRICH UR (test code = UTRICH) /HPF NONE YEAST UR (test code = UY) /HPF NONE SPERM UR (test code = USPERM) /HPF NONE PRO TIME AND [id number] 20:04:00* Test Item Value Reference Range Interpretation Comme nts PT (test code = TT) 10.5 s 9.8-13.6 INR (test code = INR) 0.9 INRH (test code = INRH) SUGGESTED THERAPEUTIC RANGE FOR INR: 2.5 - 3.5 For Patients with Prosthetic Valves or Patients with recurrent Thromboembolic Events 2.0 - 3.0 For Most Other Applications PTT (test code = PTT) 32.2 s 20.2-38.0 PTTH (test code = PTTH) To monitor the effectiveness of heparin, we offer the Anti-Xa (Heparin Assay). It can be used for either unfractionated or LMW Heparin. Order Code is ANTI-XA WET [id number] 20:01:00* Test Item Value Reference Range Interpretation Comme nts Direct Exam (test code = DE1) MANY RED BLOOD CELLS SEEN Direct Exam (test code = DE2) MODERATE WHITE BLOOD CELLS SEEN Direct Exam (test code = DE3) FEW CLUE CELLS SEEN Direct Exam (test code = DE4) FEW BACTERIA SEEN Direct Exam (test code = DE5) NO FUNGAL ELEMENTS SEEN ON DIRECT EXAM Direct Exam (test code = DE6) NO TRICHOMONAS SEEN SERUM [id number] 19:56:00* Test Item Value Reference Range Interpretation Comme nts PREG SRM (test code = PGS) NEGATIVE NEGATIVE CBC (INCLUDES AUTOMATED DIFFERENTIAL)2018-05-11 19:54:00* Test Item Value Reference Range Interpretation Comme nts WBC (test code = WBC) 7.0 10\S\3/uL 4.5-11.0 RBC (test code = RBC) 4.55 10\S\6/uL 4.30-5.70 HGB (test code = HBG) 13.7 g/dL 12.0-15.5 HCT (test code = HCT) 39.6 % 35.0-44.0 MCV (test code = MCV) 87.0 fL 81.0-99.0 MCH (test code = MCH) 30.1 pg 27.0-31.0 MCHC (test code = MCHC) 34.6 g/dL 32.0-36.0 RDW (test code = RDW) 11.6 % 11.5-14.5 PLT (test code = PLT) 212 10\S\3/uL 130-400 MPV (test code = MPV) 10.9 fL 9.4-12.4 NEUTROP # (test code = NE#) 3.6 10\S\3/uL 1.6-8.0 LYMPH # (test code = LY#) 2.6 10\S\3/uL 1.1-3.5 MONOCYTE # (test code = MO#) 0.4 10\S\3/uL 0.0-1.1 EOSINOPH # (test code = EO#) 0.3 10\S\3/uL 0.0-0.7 BASOPHIL # (test code = BA#) 0.0 10\S\3/uL 0.0-0.3 IG # (test code = IG#) 0.01 10\S\3/uL 0.00-0.06 NRBC # (test code = NRBC#) 0.00 10\S\3/uL 0.00-0.01 NEUTROPH % (test code = NE%) 52.2 % 35.0-73.0 LYMPH % (test code = LY%) 37.2 % 20.0-55.0 MONO % (test code = MO%) 6.2 % 2.5-10.0 EOSINOPH % (test code = EO%) 3.7 % 0.0-5.0 BASOPHIL % (test code = BA%) 0.6 % 0.0-2.0 IG % (test code = IG%) 0.1 % 0.0-0.8 NRBC% (test code = NRBC%) 0.0 % 0.0-0.2 MANDIFF (test code = MDIFF) NO NO RBC MORPH (test code = RBCMOR) NORMAL XR SHOULDER RIGHT 3 [id number] 13:28:52Right shoulder, 3 viewsLocation Code: [id number] HISTORY: R52: PAIN, UNSPECIFIEDCOMMENTS: AP views in internal and external rotation along with a transscapularY view of the right shoulder were obtained. There is no acute fracture ormalalignment. The soft tissues are unremarkable.IMPRESSION: No acute abnormality.AMYLASE AND [id number] 13:15:00* Test Item Value Reference Range Interpretation Comme nts AMYLASE (test code = 10A) 45 U/L 28-100 LIPASE (test code = 60A) 87 IU/L 73-393 COMPREHENSIVE METABOLIC [id number] 13:15:00* Test Item Value Reference Range Interpretation Comme nts GLUCOSE (test code = 06D) 120 mg/dL 75-100 H SODIUM (test code = 01A) 135 mmol/L 136-145 L POTASSIUM (test code = 01B) 3.5 mmol/L 3.6-5.1 L CHLORIDE (test code = 04A) 101 mmol/L 98-107 CO2 (test code = 02A) 27 mmol/L 22-32 ANION GAP (test code = ANG) 10.5 mmol/L BUN (test code = 05D) 10 mg/dL 7-18 CREATININE (test code = 03E) 0.8 mg/dL 0.4-1.1 BUN/CREA (test code = BCR) 12 12-20 CALCIUM (test code = 09D) 8.8 mg/dL 8.3-9.5 BILI TOTAL (test code = 11A) 0.5 mg/dL 0.2-1.0 PROTEIN (test code = 07D) 7.6 g/dL 6.4-8.2 ALBUMIN (test code = 08D) 3.9 g/dL 3.5-4.8 GLOBULIN (test code = GLB) 3.7 g/dL 1.5-3.8 ALB/GLOB (test code = AGRR) 1.1 1.0-2.6 ALK PHOS (test code = 35A) 80 IU/L 42-121 AST (test code = 30A) 16 IU/L <=42 ALT (test code = 31A) 14 IU/L <=78 DIRECT INFLUENZA A AND B [id number] 13:11:00* Test Item Value Reference Range Interpretation Comme nts Direct Exam (test code = DE1) PRESUMPTIVE NEGATIVE FOR THE PRESENCE OF INFLUENZA ANTIGEN URINALYSIS WITH [id number] 13:09:00* Test Item Value Reference Range Interpretation Comme nts COLOR (test code = COLU) YELLOW YELLOW CLARITY (test code = CLA) CLOUDY CLEAR A GLUCOSE UR (test code = UA GLUCOSE) NEGATIVE NEGATIVE BILI UR (test code = BILE) NEGATIVE NEGATIVE KETONES UR (test code = JESSICA) NEGATIVE NEGATIVE SP GRAVITY (test code = SPGR) 1.014 1.005-1.030 PH UR (test code = PH) 6.0 4.5-8.0 PROTEIN UR (test code = PU) NEGATIVE NEGATIVE UROBIL UR (test code = UROQ) 1.0 EU/dL 0.2-1.0 NITRITE UR (test code = NITRITE) NEGATIVE NEGATIVE BLOOD UR (test code = UA BLOOD) 3+ NEGATIVE A LEUK ES UR (test code = LEUK) TRACE NEGATIVE A WBC UR (test code = UWBC) 2 /HPF 0-5 RBC UR (test code = URBC) 15 /HPF 0-2 H EPITH UR (test code = UEPC) FEW /LPF FEW BACTERIA UR (test code = UBACT) NONE /HPF NONE CAST UR (test code = CAST) /LPF NONE CRYSTAL UR (test code = CRYU) / LPF NONE MUCUS UR (test code = MUC) / HPF NONE AMORPH UR (test code = COMFORT) / HPF NONE TRICH UR (test code = UTRICH) /HPF NONE YEAST UR (test code = UY) /HPF NONE SPERM UR (test code = USPERM) /HPF NONE DRUGS OF [id number] 13:09:00* Test Item Value Reference Range Interpretation Comme nts DRUG SCRN (test code = HDOA) URINE DRUG SCREEN This is an unconfirmed screening result and should not be used for non-medical purposes CANNABINOD (test code = 88C) Negative NEGATIVE AMPHETAMINE (test code = 84A) Negative NEGATIVE BENZODIAZP (test code = 86A) Negative NEGATIVE BARBITURAT (test code = 85A) Negative NEGATIVE OPIATES (test code = 92B) Negative NEGATIVE COCAINE (test code = 87A) Negative NEGATIVE PHENCYCLID (test code = 66A) Negative NEGATIVE METHADONE (test code = 64A) Negative NEGATIVE DOAH (test code = DOAH) *URINE DRUG SCREEN Cut-off values are as follows: Cannabinoids 50 ng/mL Cocaine 300 ng/mL Amphetamines 1000 ng/mL Phencyclidine 25 ng/mL Benzodiazepines 200 ng.mL Methadone 300 ng/mL Barbiturates 200 ng/mL Opiates 2000 ng/mL SERUM [id number] 13:08:00* Test Item Value Reference Range Interpretation Comme nts PREG SRM (test code = PGS) NEGATIVE NEGATIVE CBC (INCLUDES AUTOMATED DIFFERENTIAL)2017-11-11 12:58:00* Test Item Value Reference Range Interpretation Comme nts WBC (test code = WBC) 6.9 10\S\3/uL 4.5-11.0 RBC (test code = RBC) 4.83 10\S\6/uL 4.30-5.70 HGB (test code = HBG) 14.4 g/dL 12.0-15.5 HCT (test code = HCT) 41.6 % 35.0-44.0 MCV (test code = MCV) 86.1 fL 81.0-99.0 MCH (test code = MCH) 29.8 pg 27.0-31.0 MCHC (test code = MCHC) 34.6 g/dL 32.0-36.0 RDW (test code = RDW) 11.5 % 11.5-14.5 PLT (test code = PLT) 187 10\S\3/uL 130-400 MPV (test code = MPV) 11.3 fL 9.4-12.4 NEUTROP # (test code = NE#) 5.3 10\S\3/uL 1.6-8.0 LYMPH # (test code = LY#) 1.2 10\S\3/uL 1.1-3.5 MONOCYTE # (test code = MO#) 0.4 10\S\3/uL 0.0-1.1 EOSINOPH # (test code = EO#) 0.1 10\S\3/uL 0.0-0.7 BASOPHIL # (test code = BA#) 0.0 10\S\3/uL 0.0-0.3 IG # (test code = IG#) 0.02 10\S\3/uL 0.00-0.06 NRBC # (test code = NRBC#) 0.00 10\S\3/uL 0.00-0.01 NEUTROPH % (test code = NE%) 76.7 % 35.0-73.0 H LYMPH % (test code = LY%) 16.7 % 20.0-55.0 L MONO % (test code = MO%) 5.2 % 2.5-10.0 EOSINOPH % (test code = EO%) 0.7 % 0.0-5.0 BASOPHIL % (test code = BA%) 0.4 % 0.0-2.0 IG % (test code = IG%) 0.3 % 0.0-0.8 NRBC% (test code = NRBC%) 0.0 % 0.0-0.2 MANDIFF (test code = MDIFF) NO NO RBC MORPH (test code = RBCMOR) NORMAL Notes Date/Time Note Provider Source Ramana Lindquist [facility]2024-04-30 00:00:00 Ramana Lindquist [facility]2022-05-03 14:46:00 [facility] ([facility]) EMERGENCY PROVIDER REPORT REPORT#:[id number] REPORT STATUS: Signed DATE:01/27/22 TIME: 1445 PATIENT: RAMO MAXWELL UNIT #: [id number] ROOM/BED: AGE: 31 SEX: F PCP PHYS: No Primary or Family Physician SERVICE AUTHOR: Holger Hernandez [employer]ER * ALL edits or amendments must be made on the electronic/computer document * Holger Hernandez 01/27/22 1446: HPI-General Illness Free Text HPI Notes Free Text HPI Notes 31-year-old female presents with a swollen nodule to her left groin, patient reports started over a month ago and improved only to worsen over the past 5 days, patient denies any nausea, vomiting, or fever. Patient reports sulfa allergy. Surgical history of D C. General Confirmed Patient Yes Initial Greet Date/Time 01/27/22 1340 Presentation Chief Complaint __ (swelling) Hx Obtained From Patient Sudden in Onset? No Review of Systems ROS Statements All systems rev neg except as marked. Review of Systems Constitutional Denies: Chills, Fatigue, Fever. Eyes Denies: Blurred bilat, Diplopia. Ears/Nose/Throat Denies: Nasal congestion, Sinus problem. Respiratory Denies: Cough, non-productive, Shortness of breath, Wheezing. Cardiovascular Denies: Chest pain, Palpitations, Syncope. GI Denies: Abdominal pain, Nausea, Vomiting. Female Denies: Dysuria, Flank pain. Musculoskeletal Denies: Back pain, Extremity pain, Extremity swelling, Joint pain, Joint swelling, Neck pain. Skin Reports: Erythema, Swelling. Neurologic Denies: Dizziness, Focal weakness, Generalized weakness, Headache. Past Medical History - Adult Stated Complaint MASS INGROWN IN VAGINAL AREA Allergies Coded Allergies: Sulfa (Sulfonamide Antibiotics) (Severe, THROAT CLOSES 01/27/22) Review of Nursing Notes Rapid assess notes rev Pt reports no significant: Past medical history Additional Surgical History d c Smoking status: Smoking status for patients 13 years old or older: Unknown,if ever smoked Physical Exam Vital Signs Vital Signs First Documented: Result Date Time Pulse Ox 97 01/27 1320 B/P 100/67 / 1320 B/P Mean 77.8 / 1320 O2 Delivery Room air 01/27 1320 Temp 98.2 01/27 1320 Pulse 90 05/ 1320 Resp 17 / 1320 Last Documented: Result Date Time Pulse Ox 97 01/27 1320 B/P 100/67 / 1320 B/P Mean 77.8 / 1320 O2 Delivery Room air 01/27 1320 Temp 98.2 01/27 1320 Pulse 90 / 1320 Resp 17 / 1320 Review of Vital Signs Reviewed Physical Exam Skin Skin Color NL, No rash, No swelling Text/Dict Notes 1 cm diameter round firm skin nodule that appears to be an infected follicle, no fluctuance, no discharge. Free Text PE Notes Free Text PE Notes General/Const General/Const Awake, Alert, No acute distress, Well appearing Eyes Eyes Atraumatic, No periorbital redness, No periorbital swelling, Eyelids NL MS Neck Neck Atraumatic, Supple, No meningismus, Full range of motion, No swelling Resp/Chest Respiratory/Chest Atraumatic, No respiratory distress, No wheezing, No stridor Cardiovascular Cardiovascular Heart rate NL, Regular rhythm, Cap refill not delayed, Peripheral circulation NL Skin Skin Atraumatic, Color NL, No rash, No swelling Neurologic Neurologic Oriented X3, Speech NL, No motor deficits, No sensory deficits Psychiatric Psychiatric Affect NL, Mood NL, Judgment/insight NL, Thought content NL Interpretation Diagnostics Point of Care Testing Pulse Oximetry Pulse Ox % 97 On: Room air Interpretation Interpreted by me, Pulse oximetry normal Re-Evaluation MDM Free Text MDM Notes Free Text MDM Notes Discussed findings with patient and will treat for cellulitis, strict return instructions for any worsening of symptoms including lesion getting any larger, any vomiting, any fever, patient verbalized understanding. ED Course Medication(s) Ordered Medication(s) Ordered: Central Nervous System Agents Sig/Sheila Start time Last Medication Dose Route Stop Time Status Admin Hydrocodone Bitart/ 1 TAB X1ED STA 01/27 1348 DC 01/27 Acetaminophen PO 01/27 1349 1430 Patient Discharge Departure Vital Signs/Condition Vital Signs First Documented: Result Date Time Pulse Ox 97 01/27 1320 B/P 100/67 / 1320 B/P Mean 77.8 / 1320 O2 Delivery Room air 01/27 1320 Temp 98.2 / 1320 Pulse 90 / 1320 Resp 17 / 1320 Last Documented: Result Date Time Pulse Ox 97 01/27 1320 B/P 100/67 / 1320 B/P Mean 77.8 / 1320 O2 Delivery Room air 01/27 1320 Temp 98.2 / 1320 Pulse 90 / 1320 Resp 17 01/27 1320 All vital signs available at the time of this entry have been reviewed. Condition Stable Clinical Impression Clinical Impression Primary Impression: Cellulitis Secondary Impressions: Folliculitis Disposition Decision Discharge )( Discharged to Home Yes )( Time 1448 )( Date 01/27/22 Discharge/Care Plan Counseled Regarding Diagnosis, Prescriptions, Need for follow-up, When to return to ED (Auto) Prescriptions Current Visit Scripts ACETAMINOPHEN/CODEINE (TYLENOL WITH CODEINE #3 300/30 MG) 1 TAB PO Q4H PRN PRN ACUTE PAIN ACETAMINOPHEN/CODEINE (TYLENOL WITH CODEINE #3 300/30 MG) 1 TAB PO Q4H PRN PRN ACUTE PAIN #10 TABS IBUPROFEN (MOTRIN) 600 MG PO QID PRN PRN PAIN IBUPROFEN (MOTRIN) 600 MG PO QID PRN PRN PAIN #20 TABS CEPHALEXIN (KEFLEX) 500 MG PO Q6H CEPHALEXIN (KEFLEX) 500 MG PO Q6H #28 CAPS Patient Instructions ED Cellulitis, ED Folliculitis Departure Forms [facility] Discharge Note I have spoken with the patient and/or caregivers. I have explained the patient's condition, diagnoses and treatment plan based on the information available to me at this time. I have answered the patient's and/or caregiver's questions and addressed any concerns. The patient and/or caregivers have as good an understanding of the patient's diagnosis, condition and treatment plan as can be expected at this point. The vital signs have been stable. The patient's condition is stable and appropriate for discharge from the emergency department. The patient will pursue further outpatient evaluation with the primary care physician or other designated or consulting physician as outlined in the discharge instructions. The patient and/or caregivers are agreeable to this plan of care and follow-up instructions have been explained in detail. The patient and/or caregivers have received these instructions in written format and have expressed an understanding of the discharge instructions. The patient and/or caregivers are aware that any significant change in condition or worsening of symptoms should prompt an immediate return to this or the closest emergency department or a call to 911. Bessie Leblanc 02/03/22 0813: Patient Discharge Departure Supervising Physician Note MidLv Saw Pt Alone I have reviewed the PA/SADDLE TREE STITCHER's note and plan of care. I was available for consultation as needed at all times during the patient's visit in the emergency department. I agree with the clinical impression, plan and disposition. at 1443 at 0813 RPT #:[id number] END OF [id number] 14:19:00 [facility] ([facility]) EMERGENCY PROVIDER REPORT REPORT#:[id number] REPORT STATUS: Signed DATE:01/27/22 TIME: 1419 PATIENT: RAMO MAXWELL UNIT #: [id number] ROOM/BED: AGE: 31 SEX: F PCP PHYS: No Primary or Family Physician SERVICE AUTHOR: Holger Hernandez NP * ALL edits or amendments must be made on the electronic/computer document * Provider in Triage - Adult Provider in Triage Initial Greet Date/Time 01/27/22 1340 Greet Note I have greeted and performed a focused rapid initial assessment of this patient. A comprehensive ED assessment and evaluation of the patient, analysis of all test results, and completion of the medical decision-making process will be conducted by additional ED providers. MSE Not Complete The medical screening exam is not complete. Further evaluation and/or treatment is required. The patient will be re-directed to the emergency department. Free Text PIT Notes Free Text PIT Notes 31-year-old female presents with swelling nodule to her left groin, patient reports started over a month ago and improved only to worsen over the past 5 days, patient denies any nausea, vomiting, or fever. Patient reports sulfa allergy. Surgical history of D C. PMH-Provider in Triage Stated Complaint MASS INGROWN IN VAGINAL AREA Allergies Coded Allergies: Sulfa (Sulfonamide Antibiotics) (Severe, THROAT CLOSES 01/27/22) Smoking status: Smoking status for patients 13 years old or older: Unknown,if ever smoked at 1444 at 0899 RPT #:[id number] END OF REPORTHCAKW
--- NOTE | 2024-05-21 13:02 | EDPHYS ---
Physician Documentation [facility] Name: Kendal Pelayo Age: 34 yrs Sex: Female : 1990 Arrival Date: 05/21/2024 Time: 11:06 Bed IW2 Private MD: ED Physician Missy Cool HPI: 05/21 12:30 This 34 yrs old Unknown Female presents to ER via Ambulatory with complaints of tongue cp sores. 12:30 Patient also c/o rash to lower thorax for the past 1-2 weeks. Admits to using Tide cp detergent instead of Gain recently, but also believes caused by working outside in heat. 12:30 The patient presents with sore throat, tongue pain and tongue sores. The patient cp describes throat pain as constant. Onset: The symptoms/episode began/occurred last week. Severity of symptoms: in the emergency department the symptoms are unchanged. Historical: - Allergies: 12:14 Sulfa (Sulfonamide Antibiotics); aa5 - PMHx: 12:14 None; aa5 - PSHx: 12:14 D\T\C; aa5 - Immunization history:: Adult Immunizations unknown. - Infectious Disease History:: Denies. - Social history:: Smoking status: Patient reports the use of cigarette tobacco products. ROS: 12:35 Eyes: Negative for injury, pain, redness, and discharge, cp 12:35 Constitutional: Negative for body aches, chills, fever, poor PO intake, 12:35 ENT: Positive for sore throat, tongue pain, Negative for drainage from ear(s), ear pain, difficulty swallowing, difficulty handling secretions, 12:35 Respiratory: Negative for cough, shortness of breath, wheezing, 12:35 Abdomen/GI: Negative for abdominal pain, vomiting, diarrhea, constipation, 12:35 Skin: Positive for rash, of the lower thorax, 12:35 Neuro: Negative for numbness, weakness, 12:35 All other systems are negative, Exam: 12:40 Head/Face: Normocephalic, atraumatic. cp 12:40 Constitutional: The patient appears in no acute distress, alert, awake, non-toxic, well developed, well nourished, 12:40 Eyes: Periorbital structures: appear normal, Conjunctiva: normal, no exudate, no injection, Sclera: no appreciated abnormality, Lids and lashes: appear normal, bilaterally, 12:40 ENT: External ear(s): are unremarkable, Ear canal(s): are normal, clear, TM's: erythema, is not appreciated, Nose: is normal, Mouth: Lips: moist, Oral mucosa: moist, Tongue: multiple ulcers noted mid to posterior top of tongue, Posterior pharynx: Airway: no evidence of obstruction, patent, Tonsils: with erythema, no exudate, erythema, that is mild, 12:40 Neck: ROM/movement: Meningeal signs: are not present, Lymph nodes: lymphadenopathy is appreciated, anterior cervical nodes, tenderness, 12:40 Chest/axilla: Inspection: normal, 12:40 Cardiovascular: Rate: normal, Rhythm: regular, 12:40 Respiratory: the patient does not display signs of respiratory distress, Respirations: normal, no use of accessory muscles, no retractions, labored breathing, is not present, Breath sounds: are clear throughout, no decreased breath sounds, no stridor, no wheezing, 12:40 Abdomen/GI: Exam negative for discomfort, distension, guarding, Inspection: abdomen appears normal, 12:40 Skin: rash can be described as erythematous, plaque-like, on the lower trunk, Vital Signs: 12:13 BP 111 / 80; Pulse 86; Resp 18 S; Temp 97.4(TE); Pulse Ox 100% on R/A; Weight 54.43 kg aa5 (R); Height 5 ft. 5 in. (R); 12:13 Body Mass Index 19.97 (54.43 kg, 165.1 cm) aa5 MDM: 12:19 Patient medically screened. cp 13:01 Data reviewed: vital signs, nurses notes, lab test result(s), and as a result, I will cp discharge patient. 13:01 Differential diagnosis: apthous stomatitis, apthous ulcer, group A strep tonsillitis, cp laryngitis, peritonsillar abscess pharyngitis, retropharyngeal abcess. Counseling: I had a detailed discussion with the patient and/or guardian regarding the historical points, exam findings, and any diagnostic results supporting the discharge/admit diagnosis, lab results, to return to the emergency department if symptoms worsen or persist or if there are any questions or concerns that arise at home. 05/21 12:23 Order name: Strep cp 05/21 13:18 Order name: Throat Culture EDMS Administered Medications: No medications were administered Disposition Summary: 05/21/24 13:02 Discharge Ordered Notes: Location: Home cp Problem: new cp Symptoms: are unchanged cp Condition: Stable cp Diagnosis - Rash and other nonspecific skin eruption cp - Glossitis cp Followup: cp - With: Private Physician - When: 2 - 3 days - Reason: Worsening of condition Discharge Instructions: - Discharge Summary Sheet cp - Glossitis cp - Rash, Adult cp Forms: - Medication Reconciliation Form cp - Antibiotic Education cp - Prescription Opioid Use cp - Patient Portal Instructions cp - Leadership Thank You Letter cp Prescriptions: - Amoxicillin 875 mg Oral Tablet - take 1 tablet ORAL route every 12 hours for 10 days; 20 tablet; Refills: 0, cp Product Selection Permitted - Medrol (Jorge) 4 mg Oral Tablets, Dose Pack - take 1 tablet ORAL route as directed - follow package instructions; 1 packet; cp Refills: 0, Product Selection Permitted Signatures: Dispatcher [employer] [facility] Ashwini Yancey RN RN aa5 Prabhakar Pires PA PA cp Corrections: (The following items were deleted from the chart) 12:24 12:24 Group A Streptococcus Rapid [id number].[id number] ordered. EDNM EDNM 05/22 13:12 05/21 13:20 This 34 yrs old Unknown Female presents to ER via Ambulatory with cp complaints of tongue sores. cp 05/22 13:12 05/21 13:20 The patient presents with sore throat, tongue pain and tongue sores, cp cp 05/22 13:12 05/21 13:20 The patient describes throat pain as constant, cp cp 05/22 13:12 05/21 13:20 Severity of symptoms: in the emergency department the symptoms are cp unchanged, cp 05/22 13:12 05/21 13:20 Onset: The symptoms/episode began/occurred last week, cp cp 05/22 13:12 05/21 13:20 Patient also c/o rash to lower thorax for the past 1-2 weeks. Admits to cp using Tide detergent instead of Gain recently, but also believes caused by working outside in heat. cp 05/22 13:13 05/21 13:30 Constitutional: Negative for body aches, chills, fever, poor PO intake, cp cp 05/22 13:13 05/21 13:30 Respiratory: Negative for cough, shortness of breath, wheezing, cp cp 05/22 13:13 05/21 13:30 Abdomen/GI: Negative for abdominal pain, vomiting, diarrhea, constipation, cp cp 05/22 13:13 05/21 13:30 Eyes: Negative for injury, pain, redness, and discharge, cp cp 05/22 13:13 05/21 13:30 ENT: Positive for sore throat, tongue pain, Negative for drainage from cp ear(s), ear pain, difficulty swallowing, difficulty handling secretions, cp 05/22 13:13 05/21 13:30 Skin: Positive for rash, of the lower thorax, cp cp 05/22 13:13 05/21 13:30 Neuro: Negative for numbness, weakness, cp cp 05/22 13:13 05/21 13:30 All other systems are negative, cp cp 05/22 13:15 05/21 13:33 Constitutional: The patient appears in no acute distress, alert, awake, cp non-toxic, well developed, well nourished, cp 05/22 13:15 05/21 13:33 Head/Face: Normocephalic, atraumatic. cp cp 05/22 13:15 05/21 13:33 Eyes: Periorbital structures: appear normal, Conjunctiva: normal, no cp exudate, no injection, Sclera: no appreciated abnormality, Lids and lashes: appear normal, bilaterally, cp 05/22 13:15 05/21 13:33 ENT: External ear(s): are unremarkable, Ear canal(s): are normal, clear, cp TM's: erythema, is not appreciated, Nose: is normal, Mouth: Lips: moist, Oral mucosa: moist, Tongue: multiple ulcers noted mid to posterior top of tongue, Posterior pharynx: Airway: no evidence of obstruction, patent, Tonsils: with erythema, no exudate, erythema, that is mild, cp 05/22 13:15 05/21 13:33 Neck: ROM/movement: Meningeal signs: are not present, Lymph nodes: cp lymphadenopathy is appreciated, anterior cervical nodes, tenderness, cp 05/22 13:15 05/21 13:33 Chest/axilla: Inspection: normal, cp cp 05/22 13:05/21 13:33 Cardiovascular: Rate: normal, Rhythm: regular, cp cp 05/22 13:05/21 13:33 Respiratory: the patient does not display signs of respiratory distress, cp Respirations: normal, no use of accessory muscles, no retractions, labored breathing, is not present, Breath sounds: are clear throughout, no decreased breath sounds, no stridor, no wheezing, cp 05/22 13:05/21 13:33 Abdomen/GI: Exam negative for discomfort, distension, guarding, Inspection: cp abdomen appears normal, cp 05/22 13:05/21 13:33 Skin: rash can be described as erythematous, plaque-like, on the lower cp trunk, cp
--- NOTE | 2024-05-21 13:02 | ER ---
Nurse's Notes [facility] Name: Kendal Pelayo Age: 34 yrs Sex: Female : 1990 Arrival Date: 05/21/2024 Time: 11:06 Bed IW2 Private MD: Diagnosis: Rash and other nonspecific skin eruption;Glossitis Presentation: 05/21 12:13 Chief complaint: Patient states: "I have sores on my tongue and a heat rash on my belly aa5 for about 1 week and a half". Coronavirus screen: At this time, the client does not indicate any symptoms associated with coronavirus-19. Ebola Screen: Patient denies travel to an Ebola-affected area in the 21 days before illness onset. Initial Sepsis Screen: Does the patient meet any 2 criteria? No. Patient's initial sepsis screen is negative. Does the patient have a suspected source of infection? No. Patient's initial sepsis screen is negative. Risk Assessment: Do you want to hurt yourself or someone else? Patient reports no desire to harm self or others. Onset of symptoms was April 2024. 12:13 Method Of Arrival: Ambulatory aa5 12:13 Acuity: KALLIE 5 aa5 Historical: - Allergies: 12:14 Sulfa (Sulfonamide Antibiotics); aa5 - PMHx: 12:14 None; aa5 - PSHx: 12:14 D\\T\\C; aa5 - Immunization history:: Adult Immunizations unknown. - Infectious Disease History:: Denies. - Social history:: Smoking status: Patient reports the use of cigarette tobacco products. Assessment: 13:50 Reassessment: Patient is alert, oriented x 3, equal unlabored respirations, skin aa5 warm/dry/pink. Vital Signs: 12:13 BP 111 / 80; Pulse 86; Resp 18 S; Temp 97.4(TE); Pulse Ox 100% on R/A; Weight 54.43 kg aa5 (R); Height 5 ft. 5 in. (R); 12:13 Body Mass Index 19.97 (54.43 kg, 165.1 cm) aa5 ED Course: 11:09 Patient arrived in ED. ra3 11:26 Prabhakar Pires PA is PHCP. cp 11:26 Missy Cool MD is Attending Physician. cp 12:13 Arm band placed on. aa5 12:14 Triage completed. aa5 13:50 No provider procedures requiring assistance completed. Patient did not have IV access aa5 during this emergency room visit. Administered Medications: No medications were administered Outcome: 13:02 Discharge ordered by MD. cp 13:50 Discharged to home ambulatory, aa5 13:50 Condition: stable 13:50 Discharge instructions given to patient, Instructed on discharge instructions, follow up and referral plans. medication usage, Demonstrated understanding of instructions, follow-up care, medications, Prescriptions given X 2, 13:51 Patient left the ED. aa5 Signatures: Ashwini Yancey, RN RN aa5 Prabhakar Pires PA PA cp Esperanza Hines ra3
[2024-05-21 13:58] VITALS: BP 111/80; TEMP 97.4; O2SAT 100
== END 2024-05-21 13:51 | disposition home or self-care (01) ==
LOC: ER 11:06
DX: R21 Rash and other nonspecific skin eruption (principal); K14.0 Glossitis
CPT/HCPCS: 87070; 87081; 99283

== ENCOUNTER 2024-07-30 06:52 | Emergency (ER) | payer SELFPAY ==
--- OUTSIDE RECORDS SUMMARY | 2024-07-30 06:57 | XMS REPORT | Continuity of Care Document ---
Author Name Unknown Address [address] [place] [address] [facility] thconnect Address [address] [place] [address] Care Team Providers Care Advanced Research Programs Director Name Role Phone Michael MANAGER OF APPLICATIONS DEVELOPMENTZoey Primary Care Physician [phone] DEBORAH LOVE Attending Clinician Unavailable Bessie Leblanc [...] Admitting Clinician DR MARY Liu Admitting Clinician DR VIRI Vyas BA Admitting Clinician Unavailable DR DOMO PULLIAM Admitting Clinician DR SUAD Winslow Admitting Clinician Lilliam AGEE, DR REINA Marx Admitting Clinician Unavailabl e Payers Payer Name Policy Type Policy Number Effective Date Expirati on Date Source [facility] MEDICAID STAR [id number] 2019 00:00:00 Problems Condition Name Condition Details [...] Inactive Date Treating Clinician Comments Source Sulfa (Sulfona mide Antibiot ics) Propensi ty to adverse reaction to drug Active 9-17 00:00: 00 Ramana Farnsworth Sulfa Antibiot ics - CLASS Propensi ty to adverse reaction to drug Active 7-11 00:00: 00 Ramana Farnsworth Sulfa (Sulfona mide Antibiot ics) DA Active [facility] THROAT CLOSES 5-03 00:00: 00 [facility] Sulfa (Sulfona mides) DA Active Unknown 09-29 00:00: 00 [facility] No Known Contrast Allergie s DA Active U 04-22 00:00: 00 [facility] No Known Drug Allergie s DA Active U 04-22 00:00: 00 [facility] No Known Food Allergie s DA Active U 04-22 00:00: 00 [facility] No Known Other Allergie s DA Active U 04-22 00:00: 00 [facility] sulfa Allergy to drug (finding ) Active [facility] Family History Family Member Diagnosis Comments Start Date Stop Date Sourc e Mother Family history of diabetes mellitus [facility] Unknown Family Member Family history of malignant neoplasm of female breast Maternal Relatives [facility] Social History Smoking Status Start Date Stop Date Source Occasional tobacco smoker (finding) [facility] Medications Ordered Medication Name Filled Medication Name Start Date Stop Date Current Medication? Ordering Clinician Indication Dosage Frequency Signature (SIG) Comments Components Source metronidazo le 500 mg tablet 06-13 00:00: 00 Yes 1mg Ramana Farnsworth Cipro 500 mg tablet -17 00:00: 00 Yes 1mg Ramana Farnsworth penicillin V potassium 500 mg tablet -03 00:00: 00 Yes 1mg Ramana Farnsworth TAKE 1 TABLET BY MOUTH EVERY 6 HOURS NEEDED FOR PAIN 04-08 00:00: 00 Yes Ramana Farnsworth AMOX/K CLAV 899-594 3155-0 -13 00:00: 00 Yes Ramana Farnsworth AMOX/K CLAV 859-837 8312-0 -21 00:00: 00 Yes Ramana Farnsworth TAKE 1 TABLET BY MOUTH EVERY DAY 0 -21 00:00: 00 Yes Ramana Farnsworth CETIRIZINE -21 00:00: 00 Yes Ramana Farnsworth metroNIDAZO LE 500 MG Oral Tablet metroNIDAZO LE 500 MG Oral Tablet -15 00:00: 00 Yes DEBORAH LOVE M.D. TAKE ONE TABLET TWICE DAILY FOR 7 DAYS. DO NOT DRINK ALCOHOL [facility] Nitrofurant oin Monohyd Macro 100 MG Oral Capsule Nitrofurant oin Monohyd Macro 100 MG Oral Capsule 2019-09 00:00: 00 Yes DEBORAH MUELLERRANI M.D. 1 capsule twice a day for [...] Weight 2019-10-31 13:07:00 52.16 KG BP Systolic 2024-06-26 08:45:00 116 mm[Hg] Ramana F Javad BP Diastolic 2024-06-26 08:45:00 78 mm[Hg] Ramana Sarah Farnsworth Weight Measured 2024-06-26 08:45:00 116.00 pounds Ramana Farnsworth Height Measured 2024-06-26 08:45:00 64.00 inches Ramana Smith Javad Body Temperature 2024-06-26 08:45:00 98.20 degrees Ramana Sarah Javad Heart Rate 2024-06-26 08:45:00 98.00 /min Ramana F Javad Respiratory Rate 2024-06-26 08:45:00 16.00 /min Ramana F Javad BP Systolic 2024-06-15 16:27:00 116 mm[Hg] Ramana F Javad BP Diastolic 2024-06-15 16:27:00 79 mm[Hg] Ramana F Javad Weight Measured 2024-06-15 16:27:00 117.00 pounds Ramana Sarah Javad Height Measured 2024-06-15 16:27:00 64.00 inches Ramana Sarah Javad Body Temperature 2024-06-15 16:27:00 98.20 degrees Ramana F Javad Heart Rate 2024-06-15 16:27:00 78.00 /min Ramana F Javad Respiratory Rate 2024-06-15 16:27:00 19.00 /min Ramana F Javad BP Systolic 2024-06-13 17:34:00 110 mm[Hg] Ramana F Javad BP Diastolic 2024-06-13 17:34:00 72 mm[Hg] Ramana F Javad Weight Measured 2024-06-13 17:34:00 115.00 pounds Ramana F Javad Height Measured 2024-06-13 17:34:00 64.00 inches Ramana F Javad Body Temperature 2024-06-13 17:34:00 97.90 degrees Ramana F Javad Heart Rate 2024-06-13 17:34:00 84.00 /min Ramana F Javad Respiratory Rate 2024-06-13 17:34:00 18.00 /min Ramana F Javad BP Systolic 2024-03-08 15:51:00 108 mm[Hg] Ramana F Javad BP Diastolic 2024-03-08 15:51:00 77 mm[Hg] Ramana F Javad Weight Measured 2024-03-08 15:51:00 118.00 pounds Ramana Farnsworth Height Measured 2024-03-08 15:51:00 64.00 inches Ramana Farnsworth Body Temperature 2024-03-08 15:51:00 98.20 degrees Ramana Farnsworth Heart Rate 2024-03-08 15:51:00 80.00 /min Ramana F Javad Respiratory Rate 2024-03-08 15:51:00 18.00 /min Ramana F Javad Heart Rate 2024-01-25 16:15:00 83.00 /min Ramana F Javad Respiratory Rate 2024-01-25 16:15:00 17.00 /min Ramana F Javad BP Systolic 2024-01-25 16:15:00 117 mm[Hg] Ramana F Javad BP Diastolic 2024-01-25 16:15:00 80 mm[Hg] Ramana F Javad Weight Measured 2024-01-25 16:15:00 117.00 pounds Ramana Farnsworth Height Measured 2024-01-25 16:15:00 64.00 inches Ramana Farnsworth Body Temperature 2024-01-25 16:15:00 98.20 degrees Ramana Farnsworth BP Systolic 2023-04-13 17:34:00 111 mm[Hg] Ramana F Javad BP Diastolic 2023-04-13 17:34:00 74 mm[Hg] Ramana F Javad Weight Measured 2023-04-13 17:34:00 116.00 pounds Ramana Farnsworth Height Measured 2023-04-13 17:34:00 64.00 inches Ramana Farnsworth Body Temperature 2023-04-13 17:34:00 98.20 degrees Ramana Farnsworth Heart Rate 2023-04-13 17:34:00 68.00 /min Ramana [...] blood pressure 2020-12-04 08:53:00 108 mm[Hg] Location: LUE; Position: Sitting [facility] Diastolic blood pressure 2020-12-04 08:53:00 72 mm[Hg] Location: LUE; Position: Sitting [facility] Body height 2020-12-04 08:53:00 65 [in_us] [facility] Weight 2020-12-04 08:53:00 114 [lb_av] [facility] Body mass index (BMI) [Ratio] 2020-12-04 08:53:00 18.97 kg/m2 [facility] Body temperature 2020-12-04 08:53:00 97.8 [degF] [facility] Heart Rate 2020-12-04 08:53:00 81 /min [facility] Systolic blood pressure 2020-09-04 08:22:00 92 mm[Hg] Location: LUE; Position: Sitting [facility] Diastolic blood pressure 2020-09-04 08:22:00 64 mm[Hg] Location: LUE; Position: Sitting [facility] Body height 2020-09-04 [...] Physicians . [facility] - GC/Chlamydia 2019-11-13 00:00:00 [facility] History of Dilation and curettage [facility] Encounters Start Date/Time End Date/Time Encounter Type Admission Type Attending Clinicians Care Facility Care Department Encounter ID Source 2021-02-01 03:33:06 Outpatient DEBORAH LOVE [facility] [id number] [facility] 2024-07-10 09:53:35 2024-07-10 09:53:35 Outpatient SFA S[facility] [id number] Ramana Farnsworth 2024-07-03 10:39:19 2024-07-03 10:39:19 Outpatient SFA SFA [id number] Ramana Farnsworth 2024-06-26 08:41:07 2024-06-26 08:41:07 Outpatient SFA SFA [id number] Ramana Farnsworth 2024-06-26 00:00:00 2024-06-26 00:00:00 Outpatient Visit S[facility] [id number] Ramana Farnsworth 2024-06-15 16:25:08 2024-06-15 16:25:08 Outpatient SFA SFA [id number] Ramana Farnsworth 2024-06-15 00:00:00 2024-06-15 00:00:00 Outpatient Visit SFA [id number] Ramana Farnsworth 2024-06-13 17:33:19 2024-06-13 17:33:[address] [facility] [id number] Ramana Farnsworth 2024-06-13 00:00:00 2024-06-13 00:00:00 Outpatient Visit SFA [id number] Ramana Farnsworth 2024-03-08 15:43:58 2024-03-08 15:43:58 Outpatient SFA SFA [id number] Ramana Farnsworth 2024-03-08 00:00:00 2024-03-08 00:00:00 Outpatient Visit S[facility] [id number] Ramana Farnsworth 2024-02-10 15:34:48 2024-02-10 15:34:[address] [facility] [id number] Ramana Farnsworth 2024-01-25 15:53:17 2024-01-25 15:53:17 Outpatient SFA SFA [id number] Ramana Farnsworth 2024-01-25 00:00:00 2024-01-25 00:00:[address] [facility] [id number] Ramana Farnsworth 2023-04-13 17:18:39 2023-04-13 17:18:[address] [facility] [id number] Ramana Farnsworth 2023-04-06 10:02:12 2023-04-06 10:02:[address] [facility] [id number] Ramana Farnsworth 2022-04-13 00:00:00 2022-04-13 00:00:00 Outpatient [id number] [facility] 2022-01-27 13:17:00 2022-01-27 15:28:00 Emergency EM Deana, Bessie [facility] [id number] [facility] 2022-01-27 13:17:00 2022-01-27 15:28:00 Emergency EM Deana, Bessie HCAKW [facility] [id number] [facility] 2021-02-06 17:17:00 2021-02-06 18:03:00 Emergency E ROD RODRIGUEZ [facility] [id number] [facility] 2020-12-04 08:45:00 2020-12-04 08:45:00 Virgilio lange; DEBORAH LOVE M.D. DURRANI, SADIA, M.D. [facility] [id number] [facility] 2020-10-08 11:45:00 2020-10-08 11:45:00 Virgilio lange; DEBORAH LOVE M.D. DURRANI, SADIA, M.D. [facility] [id number] [facility] 2020-09-04 08:30:00 2020-09-04 08:30:00 Appointmen t; DEBORAH LOVE M.D. DURRANI, SADIA, M.D. [facility] [id number] [facility] 2020-08-07 08:30:00 2020-08-07 08:30:00 Appointmen t; DEBORAH LOVE M.D. DURRANI, SADIA, M.D. [facility] [id number] [facility] 2020-07-18 09:45:00 2020-07-18 09:45:00 Appointmen t; GLENROY HOLGUIN, PGLENROY RUIZ [facility] [id number] [facility] 2020-02-15 16:34:00 2020-02-15 19:30:00 Emergency E SAMI H[facility]LEY [facility] [id number] [facility] 2019-11-27 19:04:00 2019-11-27 21:41:00 Emergency E MARY AGEE [facility] [id number] [facility] 2019-11-20 09:30:00 2019-11-20 09:30:00 Appointmen t; VISHNU AGGARWAL M.D. DURGAM, ABHILASH, M.D. [facility] [id number] [facility] 2019-11-13 10:00:00 2019-11-13 10:00:00 Appointmen t; VISHNU AGGARWAL M.D. DURGAM, ABHILASH, M.D. [facility] [id number] [facility] 2019-10-31 13:07:00 2019-10-31 14:33:00 Emergency E SAMI HANLEY [facility] [id number] [facility] 2018-12-12 12:27:00 2018-12-12 14:15:00 Emergency E VIRI MIRANDA [facility] [id number] [facility] 2018-05-16 20:34:00 2018-05-16 23:05:00 Emergency E DOMO PULLIAM [facility] [id number] [facility] 2018-05-11 19:04:00 2018-05-11 22:11:00 Emergency E SUAD CANNON [facility] [id number] [facility] 2017-11-11 11:49:00 2017-11-11 14:01:00 Emergency E REINA AGEE [facility] [id number] [facility] Results Test Description Test Time Test Comments Results Result Co mments Source Ramana FarnsworthCT/NG, NAAT, [id number] 00:00:00* Test Item Value Reference Range Interpretation Comme nts CHLAMYDIA, NAAT, URINE (test code = 13278) NEGATIVE GONORRHEA, NAAT, URINE (test code = 21460) NEGATIVE Ramana FarnsworthCULTURE, [id number] 00:00:00* Test Item Value Reference Range Interpretation Comme nts CULTURE, URINE (test code = 32994) SPECIMEN NUMBER: [id number] Ramana FarnsworthHIV 1/2 4TH GEN, RFLX [id number] 00:00:00* Test Item Value Reference Range Interpretation Comme nts HIV 1/2 4TH GEN, RFLX CONF ( test code = 3514) NON-REACTIVE Ramana FarnsworthRPR REFLEX TO T. PALLIDUM - [id number] 00:00:00* Test Item Value Reference Range Interpretation Comme nts RPR (test code = 90462) REACTIVE RPR TITER (test code = 3500) 1:128 TITER Ramana FarnsworthACUTE HEPATITIS [id number] 00:00:00* Test Item Value Reference Range Interpretation Comme nts HEPATITIS A IgM (test code = 06447) NON-REACTIVE HEPATITIS B CORE IgM (test c ode = 4644) NON-REACTIVE HEPATITIS B SURF AG (test co de = 2739) NON-REACTIVE HEPATITIS C ANTIBODY (test c ode = 4675) NON-REACTIVE INTERPRETATION HEPATITIS A: (test code = 2552) (NOTE) INTERPRETATION HEPATITIS B: (test code = 51280) (NOTE) INTERPRETATION HEPATITIS C: (test code = 67981) (NOTE) Ramana FarnsworthVAGINAL PATHOGENS DNA [id number] 00:00:00* Test Item Value Reference Range Interpretation Comme nts ONEAL SPECIES (test code = 53132) NEGATIVE G. VAGINALIS (test code = 72300) POSITIVE T. VAGINALIS (test code = 44888) NEGATIVE Ramana Zelaya, [id number] 11:14:04SPECIMEN NUMBER: [id number] CULTURE, URINE SPECIMEN NUMBER: [id number] SPECIMEN COMMENT: URINE SOURCE: URINE REPORT STATUS: FINAL ISOLATE NUMBER 1: ORGANISM: 01/27/2024 <10,000 CFU/ML STREPTOCOCCUSAGALACTIAE (GROUP B) ADDITIONAL OBSERVATIONS: PENICILLIN AND AMPICILLIN ARE DRUGS OF CHOICE FOR TREATMENT OF B-HEMOLYTIC STREPTOCOCCAL INFECTIONS. SUSCEPTIBILITY TESTING OF PENICILLIN AND OTHER B-LACTAMS APPROVED BY THE [place] FOOD AND DRUG ADMINISTRATION FOR TREATMENT OF B-HEMOLYTIC STREPTOCOCCAL INFECTIONS NEED NOT BE PERFORMED ROUTINELY. ADDITIONAL OBSERVATIONS: 01/27/2024 <10,000 CFU/ML UROGENITAL FRANK PRESENT NO COMMON PATHOGENSCULTURE, URINE 2024-01-27 00:00:00* Test Item Value Reference Range Interpretation Comme nts CULTURE, URINE (test code = 84789) SPECIMEN NUMBER: [id number] Ramana FarnsworthCULTURE, [id number] 00:00:00* Test Item Value Reference Range Interpretation Comme nts CULTURE, URINE (test code = 98941) SPECIMEN NUMBER: [id number] Ramana FarnsworthCULTURE, [id number] 00:00:00* Test Item Value Reference Range Interpretation Comme nts CULTURE, URINE (test code = 40813) SPECIMEN NUMBER: [id number] Ramana FarnsworthCULTURE, [id number] 00:00:00* Test Item Value Reference Range Interpretation Comme nts CULTURE, URINE (test code = 64124) SPECIMEN NUMBER: [id number] Ramana FarnsworthCT/NG, NAAT, [id number] 16:53:42* Test Item Value Reference Range Interpretation Comme nts CHLAMYDIA, NAAT, URINE (test code = 85104) NEGATIVE NEGATIVE Testing is perfo rmed with [employer] 6800/8800 systems usingreal-time polymerase chain reaction (PCR) method. A negative result does not exclude low level infection, specimensampling error, or collection error. GONORRHEA, NAAT, URINE (test code = 64928) NEGATIVE NEGATIVE Testing is perfo rmed with [facility] [employer] 6800/8800 systems usingreal-time polymerase chain reaction (PCR) method. A negative result does not exclude low level infection, specimensampling error, or collection error. UNLESS OTHERWISE INDICATED, ALL TESTING PERFORMED AT [facility] [address] [place] [address] LEAN COACH: ANGELO KELSEY M.D. CLIA NUMBER [id number] [facility] [place]. [id number] CT/NG, NAAT, [id number] 00:00:00* Test Item Value Reference Range Interpretation Comme nts CHLAMYDIA, NAAT, URINE (test code = 36634) NEGATIVE GONORRHEA, NAAT, URINE (test code = 27910) NEGATIVE Ramana Smith JavadCT/NG, NAAT, [id number] 00:00:00* Test Item Value Reference Range Interpretation Comme nts CHLAMYDIA, NAAT, URINE (test code = 35449) NEGATIVE GONORRHEA, NAAT, URINE (test code = 23096) NEGATIVE Ramana F AustinCT/NG, NAAT, [id number] 00:00:00* Test Item Value Reference Range Interpretation Comme nts CHLAMYDIA, NAAT, URINE (test code = 86065) NEGATIVE GONORRHEA, NAAT, URINE (test code = 59231) NEGATIVE Ramana Smith JavadCT/NG, NAAT, [id number] 00:00:00* Test Item Value Reference Range Interpretation Comme nts CHLAMYDIA, NAAT, URINE (test code = 92954) NEGATIVE GONORRHEA, NAAT, URINE (test code = 70249) NEGATIVE Ramana Farnsworth[QL] CULTURE, URINE, [id number] 10:26:00* Test Item Value Reference Range Interpretation Comme nts CULTURE (test code = CULTURE) See Comment A CULTURE, URINE, ROUTINE Micro Number: [id number] Test Status: Final Specimen Source: URINE, CLEAN [...] cefdinir, cefpodoxime, cefprozil, cefuroxime, cephalexin and loracarbef. [facility]. [facility] - Affirm VPIII (BV Panel)2020-10-09 15:07:00* Test Item Value Reference Range Interpretation Comme nts Case (test code = Case) Click ImageLink button for report. A [facility][QL] LIPID [id number] 09:25:00* Test Item Value Reference Range Interpretation Comme nts CHOLESTEROL, TOTAL; Normal (test code = 2093-3) 130 mg/dl <200 N HDL CHOLESTEROL; Normal (test code = 2085-9) 51 mg/dl > OR = 50 N TRIGLYCERIDES; Normal (test code = 2571-8) 71 mg/dl <150 N LDL-CHOLESTEROL; Normal (test code = 85181-3) 64 {MG/DL CALLIE} N Reference range: <100 Desirable range <100 mg/dL for primary prevention; <70 mg/dL for patients with CHD or diabetic patients with > or = 2 CHD risk factors. LDL-C is now calculated using the Cata calculation, which is a validated novel method providing better accuracy than the Friedewald equation in the estimation of LDL-C. Malik SS et al. ALEXANDRA. 2013;310(19): 0443-1806 (http://education.[employer].com/f aq/WHY901) CHOL/HDLC RATIO (test code = CHOL/HDLC RATIO) 2.5 {CALC} <5.0 N NON HDL CHOLESTEROL (test code = NON HDL CHOLESTEROL) 79 {MG/DL CALLIE} <130 N For patients wit h diabetes plus 1 major ASCVD risk factor, treating to a non-HDL-C goal of <100 mg/dL (LDL-C of <70 mg/dL) is considered a therapeutic option. [facility][QL] CMP [id number] 09:25:00* Test Item Value Reference Range Interpretation Comme nts GLUCOSE; Normal (test code = 1547-9) 86 mg/dl 65-99 N Fasting ref erence interval UREA NITROGEN (BUN) (test code = UREA NITROGEN (BUN)) 7 mg/dl 7-25 N CREATININE (test code = CREATININE) 0.78 mg/dl 0.50-1.10 N eGFR NON-AFR. MALDIVIAN (test code = eGFR NON-AFR. MALDIVIAN) 102 {ML/MIN/1.7} > OR = 60 N [...] N BILIRUBIN, TOTAL; Normal (test code = 86151-5) 0.5 mg/dl 0.2-1.2 N ALKALINE PHOSPHATASE (test code = ALKALINE PHOSPHATASE) 57 u/l 31-125 N AST; Normal (test code = 1916-6) 11 u/l 10-30 N ALT; Normal (test code = 1742-6) 9 u/l 6-29 N [facility][QL] CBC (INCLUDES DIFF/PLT)2020-09-04 09:25:00* Test Item Value Reference Range Interpretation Comme nts WHITE BLOOD CELL COUNT (test code = WHITE BLOOD CELL COUNT) 9.2 {Thousand/u} 3.8-10.8 N RED BLOOD CELL COUNT (test code = RED BLOOD CELL COUNT) 4.39 {Million/uL} 3.80-5.10 N HEMOGLOBIN; Normal (test code = 35222-1) 12.8 g/dl 11.7-15.5 N HEMATOCRIT; Normal (test code = 4544-3) 37.9 % 35.0-45.0 N MCV; Normal (test code = 787-2) 86.3 fL 80.0-100.0 N MCHC; Normal (test code = 72549-9) 33.8 g/dl 32.0-36.0 N RDW; Normal (test code = 788-0) 11.7 % 11.0-15.0 N PLATELET COUNT; Normal (test code = 777-3) 221 {Thousand/u} 140-400 N MPV; Normal (test code = 71972-5) 11.0 fL 7.5-12.5 N ABSOLUTE NEUTROPHILS (test code = ABSOLUTE NEUTROPHILS) 5980 {cells/uL} 9015-2841 N ABSOLUTE LYMPHOCYTES (test code = ABSOLUTE [...] % N MONOCYTES; Normal (test code = 62634-5) 6.0 % N EOSINOPHILS; Normal (test code = 68848-0) 3.5 % N BASOPHILS; Normal (test code = 38777-5) 0.4 % N [facility][QL] T4, [id number] 09:25:00* Test Item Value Reference Range Interpretation Comme [facility] T4, FREE (test code = T4, FREE) 1.0 ng/dl 0.8-1.8 N [facility][QL] TSH, 3RD [id number] 09:25:00* Test Item Value Reference Range Interpretation Comme nts TSH; Normal (test code = 18340-7) 2.15 {MIU/L} N Reference Range > or = 20 Years 0.40-4.50 Ranges First trimester 0.26-2.66 Second trimester 0.55-2.73 Third trimester 0.43-2.91 [facility][QL] HEMOGLOBIN [id number] 09:25:00* Test Item Value Reference Range Interpretation Comme [facility] HEMOGLOBIN A1c; Normal (test code = 4548-4) [...] diagnosis of diabetes in children. According to [place] [employer] (ADA)guidelines, hemoglobin A1c <7.0% represents optimalcontrol in non- diabetic patients. Differentmetrics may apply to specific patient populations. Standards of Medical Care in Diabetes(ADA). [facility]. [facility] - [id number] 00:00:00* Test Item Value Reference Range Interpretation Comme [facility] Case (test code = Case) Click ImageLink button for report. A [facility][O] Urine Test (in office)2020-08-07 08:21:00* Test Item Value Reference Range Interpretation Comme [facility] Test, Urine; Eladia l (test code = 2106-3) neg N [facility][O] Urine Dipstick (In Office)2020-07-18 11:17:00* Test Item Value Reference Range Interpretation Comme nts Glucose (test code = Glucose) neg N LEUKOCYTES (test code = LEUKOCYTES) trace A NITRITE; Normal (test code = 59179-0) neg N UROBILINOGEN; Normal (test c ode = 22591-6) 0.2 N PROTEIN; Normal (test code = 07074-3) 30 N pH (test code = pH) 6.0 N URINE BLOOD; Abnormal (test code = 33604-9) large A SPECIFIC GRAVITY; Normal (te st code = 2965-2) 1.020 N KETONES; Normal (test code = 72663-7) neg N BILIRUBIN; Abnormal (test co de = 36172-1) small A [facility][Q] HIV-1/2 Antigen and Antibodies, Fourth Generation, with [id number] 10:30:00* Test Item Value Reference Range Interpretation Comme nts HIV AG/AB, 4TH GEN; Normal (test code = 10266-3) NON-REACTIVE NON-REACTIVE N HIV-1 antigen an d [...] this purpose. For additional information please refer tohttp://education.[employer]/faq/PTS803(Thi s link is being provided for informational/educational purposes only.) The performance of this assay has not been clinicallyvalidated in patients less than 2 years old. [facility][Q] HEPATITIS B SURFACE ANTIGEN W/REFL [id number] 10:30:00* Test Item Value Reference Range Interpretation Comme nts HEPATITIS B SURFACE ANTIGEN; Normal (test code = 5195-3) NON-REACTIVE NON-REACTIVE N [facility][QL] HEPATITIS C [id number] 10:30:00* Test Item Value Reference Range Interpretation Comme nts HEPATITIS C ANTIBODY; Normal (test code = 92839-9) NON-REACTIVE NON-REACTIVE N SIGNAL TO CUT-OFF (test code = SIGNAL TO CUT-OFF) 0.02 <1.00 N HCV antibody was non-reactive. There is no laboratory evidence of HCV infection. In most cases, no further action is required. However,if recent HCV exposure is suspected, a test for HCV RNA(test code 47062) is suggested. For additional information please refer tohttp://[employer]/fa q/IZU99e9(This link is being provided for informational/educati onal purposes only.) [facility][Q] CHLAMYDIA/N. GONORRHOEAE RNA, [id number] 10:30:00* Test Item Value Reference Range Interpretation Comme nts CHLAMYDIA TRACHOMATIS RNA, TMA, UROGENITAL; Normal (test code = 41362-2) NOT DETECTED NOT DETECTED N NEISSERIA GONORRHOEAE RNA, TMA, UROGENITAL; Normal (test code = 90592-2) NOT DETECTED NOT DETECTED N See Comment (test code = See Comment) See Comment The analytic al performance characteristics of thisassay, when used to test SurePath(TM) specimens have beendetermined by [employer]. The modifications havenot been cleared or approved by the FDA. This assay hasbeen validated pursuant to the CLIA regulations and isused for clinical purposes. For additional information, please refer [email or web address]/faq /[email or web address](This link is being provided for information/educationa l purposes only.) [facility][QL] [id number] 10:30:00* Test Item Value Reference Range Interpretation Comme nts RPR (MONITOR) W/REFL TITER (REFL) (test code = RPR (MONITOR) W/REFL TITER (REFL)) NON-REACTIVE NON-REACTIVE N [facility][QL] CULTURE, URINE, [id number] 10:30:00* Test Item Value Reference Range Interpretation Comme nts CULTURE (test code = CULTURE) See Comment A CULTURE, URINE, ROUTINE Micro Number: [id number] Test Status: Final Specimen Source: URINE Specimen [...] cefdinir, cefpodoxime, cefprozil, cefuroxime, cephalexin and loracarbef. [facility] [id number] 09:44:00* Test Item Value Reference Range Interpretation Comme nts Culture Observations (test code = COB1) THREE OR MORE SPECIES OF BACTERIA ISOLATED. PROBABLE CONTAMINATION. Culture Observations (test code = COB17) IDENTIFICATION AND SUSCEPTIBILITY NOT INDICATED. RECOLLECTION RECOMMENDED COMPREHENSIVE METABOLIC [id number] 19:49:00* Test Item Value Reference Range Interpretation [...] = 31A) 16 IU/L <=78 AMYLASE AND [id number] 18:41:00* Test Item Value Reference Range Interpretation Comme nts AMYLASE (test code = 10A) 38 U/L 28-100 LIPASE (test code = 60A) 46 IU/L 73-393 L URINALYSIS WITH [id number] 18:06:00* Test Item Value Reference Range Interpretation [...] UR (test code = USPERM) /HPF NONE [id number] 17:45:00* Test Item Value Reference Range Interpretation Comme nts MAGNESIUM (test code = 48A) 2.0 mg/dL 1.8-2.4 PRO TIME AND [id number] 17:42:00* Test Item Value Reference Range Interpretation [...] LMW Heparin. Order Code is ANTI-XA URINE [id number] 17:37:00* Test Item Value Reference Range Interpretation [...] HIV-1/2 Antigen and Antibodies, Fourth Generation, with [id number] 11:15:00* Test Item Value Reference Range Interpretation Comme nts HIV AG/AB, 4TH GEN; Normal (test code = 46302-5) NON-REACTIVE NON-REACTIVE N HIV-1 antigen an d [...] this purpose. For additional information please refer [email or web address]/BJG968(Thi s link is being provided for informational/educational purposes only.) The performance of this assay has not been clinicallyvalidated in patients less than 2 years old. [facility][] HEPATITIS B SURFACE ANTIGEN W/REFL [id number] 11:15:00 * Test Item Value Reference Range Interpretation Comme [facility] HEPATITIS B SURFACE ANTIGEN; Normal (test code = 5195-3) NON-REACTIVE NON-REACTIVE N [facility]] HEPATITIS C [id number] 11:15:00* Test Item Value Reference Range Interpretation Comme [facility] HEPATITIS C ANTIBODY; Normal (test code = 94949-8) NON-REACTIVE NON-REACTIVE N SIGNAL TO CUT-OFF (test code = SIGNAL TO CUT-OFF) 0.01 <1.00 N HCV antibody was non-reactive. There is no laboratory evidence of HCV infection. In most cases, no further action is required. However,if recent HCV exposure is suspected, a test for HCV RNA(test code 26692) is suggested. For additional information please refer [email or web address] na Mala/fa q/KQP72n7(This link is being provided for informational/educati onal purposes only.) [facility]] [id number] 11:15:00* Test Item Value Reference Range Interpretation Comme nts RPR (MONITOR) W/REFL TITER (REFL) (test code = RPR (MONITOR) W/REFL TITER (REFL)) NON-REACTIVE NON-REACTIVE N [facility]. [facility] - [id number] 00:00:00* Test Item Value Reference Range Interpretation Comme nts Case (test code = Case) Click ImageLink button for report. A Specimen 1 (test code = Specimen 1) Click ImageLink button for report. A [place] [facility]INAL[facility]IS WITH MICRO *WW*2018-12-12 13:38:00* Test Item [...] code = PGU) NEGATIVE NEGATIVE DIRECT CHLAMYDIA [id number] 07:27:00* Test Item Value Reference Range Interpretation Comme nts CHLAMYDIA TRACHOMATIS (test code = 80591036) NOT DETECTED NOT DETECTED NEISSERIA GONORRHOEAE (test code = 64655793) NOT DETECTED NOT DETECTED Endnote (test code = 72599862) This test was performed using the APTIMA COMBO2 Assay([employer]The analytical performance characteristics of thisassay, when used to test [facility] specimens havebeen determined by [employer].TEST PERFORMED AT:[facility] [address] [id number] ODOM M.D. U/S [id number] 21:57:11EXAM: Pelvic ultrasoundLocation: R16 COMPARISON: NoneINDICATION: Vaginal [...] = USPERM) /HPF NONE PRO TIME AND [id number] 20:04:00* Test Item Value Reference Range Interpretation [...] LMW Heparin. Order Code is ANTI-XA WET [id number] 20:01:00* Test Item Value Reference Range Interpretation [...] code = DE6) NO TRICHOMONAS SEEN SERUM [id number] 19:56:00* Test Item Value Reference Range Interpretation [...] = RBCMOR) NORMAL XR SHOULDER RIGHT 3 [id number] 13:28:52Right shoulder, 3 viewsLocation Code: [id number] HISTORY: R52: PAIN, UNSPECIFIEDCOMMENTS: AP views in internal and external rotation along with a transscapularY view of the right shoulder were obtained. There is no acute fracture ormalalignment. The soft tissues are unremarkable.IMPRESSION: No acute abnormality.AMYLASE AND [id number] 13:15:00* Test Item Value Reference Range Interpretation Comme nts AMYLASE (test code = 10A) 45 U/L 28-100 LIPASE (test code = 60A) 87 IU/L 73-393 COMPREHENSIVE METABOLIC [id number] 13:15:00* Test Item Value Reference Range Interpretation [...] IU/L <=78 DIRECT INFLUENZA A AND B [id number] 13:11:00* Test Item Value Reference Range Interpretation Comme nts Direct Exam (test code = DE1) PRESUMPTIVE NEGATIVE FOR THE PRESENCE OF INFLUENZA ANTIGEN URINALYSIS WITH [id number] 13:09:00* Test Item Value Reference Range Interpretation [...] code = USPERM) /HPF NONE DRUGS OF [id number] 13:09:00* Test Item Value Reference Range Interpretation [...] Barbiturates 200 ng/mL Opiates 2000 ng/mL SERUM [id number] 13:08:00* Test Item Value Reference Range Interpretation [...] NORMAL Notes Date/Time Note Provider Source [facility]2024-09-19 00:00:00 [facility]2024-09-17 00:00:00 [facility]2024-06-12 00:00:00 [facility]2024-04-30 00:00:00 [facility]2022-05-03 14:46:00 [facility] ([facility]) EMERGENCY PROVIDER REPORT REPORT#:[id number] REPORT STATUS: Signed DATE:01/27/22 TIME: 1445 PATIENT: RAMO MAXWELL UNIT #: [id number] ROOM/BED: AGE: 31 SEX: F PCP PHYS: No Primary or Family Physician SERVICE AUTHOR: Holger Hernandez SCREENER OPERATOR * ALL edits or amendments must be [...] Pulse Ox 97 01/27 1320 B/P 100/67 01/27 1320 B/P Mean 77.8 01/27 1320 O2 Delivery Room air 01/27 1320 Temp 98.2 01/27 1320 Pulse 90 01/27 1320 Resp 17 01/27 1320 Last Documented: Result Date Time Pulse Ox 97 01/27 1320 B/P 100/67 / 1320 B/P Mean 77.8 01/27 1320 O2 Delivery Room air 01/27 1320 Temp 98.2 01/27 1320 Pulse 90 01/27 1320 Resp 17 01/27 1320 Review of Vital Signs Reviewed Physical [...] Pulse Ox 97 01/27 1320 B/P 100/67 01/27 1320 B/P Mean 77.8 01/27 1320 O2 Delivery Room air 01/27 1320 Temp 98.2 01/27 1320 Pulse 90 01/27 1320 Resp 17 01/27 1320 Last Documented: Result Date Time Pulse Ox 97 01/27 1320 B/P 100/67 01/27 1320 B/P Mean 77.8 01/27 1320 O2 Delivery Room air 01/28 1320 Temp 98.2 01/27 132 Pulse 90 01/27 132 Resp 17 01/27 1320 All vital signs [...] closest emergency department or a call to 1. Bessie Leblanc 02/03/22 0813: Patient Discharge Departure Supervising Physician Note MidLv Saw Pt Alone I have reviewed the PA/SCREENER OPERATOR's note and plan of care. I was available for consultation as needed at all times during the patient's visit in the emergency department. I agree with the clinical impression, plan and disposition. at 1443 at 0813 RPT #:[id number] END OF [id number] 14:19:00 [facility] ([facility]) EMERGENCY PROVIDER REPORT REPORT#:[id number] REPORT STATUS: Signed DATE:01/27/22 TIME: 1419 PATIENT: RAMO MAXWELL UNIT #: [id number] ROOM/BED: AGE: 31 SEX: F PCP PHYS: [...] older: Unknown,if ever smoked at 1444 at 0813 RPT #:[id number] END OF REPORTFORRESTW
[2024-07-30] MEDS ORDERED: KETOROLAC 30 MG/ML INJ ONE (07:28)
[2024-07-30] MEDS ORDERED: ONDANSETRON 4 MG/2 ML VIAL ONE (07:28)
[2024-07-30 07:42] LABS: Absolute Basophils 0.1 K/uL (0-0.5); Absolute Eosinophils 0.1 K/uL (0-0.5); Absolute Lymphocytes (CBC) 2.9 K/uL (0.7-4.9); Absolute Monocytes 0.4 K/uL (0.1-1.3); Absolute Neutrophil 3.7 K/uL (1.8-8.0); Basophils % 0.8 % (0-1.3); Eosinophils % 1.7 % (0-4.4); Hematocrit 41.9 % (36.0-45.0); Hemoglobin 14.3 g/dL (12.0-15.0); Lymphocytes % 40.2 % (15.3-44.8); MCH 29.4 pg (27.0-35.0); MCHC 34.2 g/dL (32.0-36.0); MCV 85.9 fL (80-100); MPV 7.7 fL (7.6-11.3); Neutrophils % 51.3 % (41.7-73.7); Platelets 268 thou/uL (152-406); RBC Red Blood Cell Count 4.88 M/uL (3.86-4.86); Red Cell Distribution Width 12.8 % (12.1-15.2)
[2024-07-30 07:59] LABS: Albumin 3.9 g/dL (3.4-5.0); Anion Gap 7.9 mEq/L (5.0-15.0); Bilirubin Total 0.2 mg/dL (0.2-1.0); Globulin 3.8 g/dL (2.3-3.5); Potassium 3.9 mEq/L (3.5-5.1); Protein, Total 7.7 g/dL (6.4-8.2)
--- NOTE | 2024-07-30 08:46 | RAD REPORT ---
EXAM:Ribs Right HISTORY: RIB PAIN - RIGHT COMPARISON: None IMPRESSION: No displaced or healing right-sided rib fractures. No pneumothorax. The lungs are clear b ilaterally.
[2024-07-30 09:24] LABS: Specific Gravity 1.012 (1.005-1.030)
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
[2024-07-30 10:22] VITALS: TEMP 97.3
[2024-07-30 10:25] VITALS: BP 98/55; O2SAT 98
== END 2024-07-30 09:48 | disposition home or self-care (01) ==
LOC: ER 06:52
DX: S20.211A Contusion of right front wall of thorax, initial encounter (principal); R11.0 Nausea
CPT/HCPCS: 36415; 80053; 81025; 83690; 85025; 96374; 96375; 99284; J2405